=== PATIENT | male | born 1955 | race Hispanic/Latino ===

== ENCOUNTER 2021-04-21 03:12 | Inpatient (IN) | payer SELFPAY ==
[~2021-04-21] VITALS: Ht 182.9 cm; Wt 79.3 kg
[2021-04-21] VITALS (21 sets, daily range): BP systolic 84–222; BP diastolic 38–110
[2021-04-21] MEDS ORDERED: ASPIRIN 325MG TAB ONE (03:25)
[2021-04-21] MEDS ORDERED: HEPARIN 25,000 UNITS/250ML D5W 250 ML IV ONE (03:25)
[2021-04-21] MEDS ORDERED: METOPROLOL TARTRATE 1 MG/ML 5ML VIAL IV ONE ×2 (03:28→04:00)
[2021-04-21] MEDS ORDERED: LORAZEPAM 2 MG/ML 1 ML VIAL ONE (03:28)
[2021-04-21] MEDS ORDERED: ENALAPRILAT DIHYDRATE 1.25MG/ML 1ML VIAL IV ONE (03:33)
[2021-04-21] MEDS ORDERED: NITROGLYCERIN 50MG/D5W 250ML 1 BOT ONE (03:40)
[2021-04-21 03:43] LABS: POTASSIUM 3.6 mmol/L (3.5-5.1)
[2021-04-21 03:44] LABS: BASOPHILS % (AUTO) 0.8 % (0.0-5.0); LYMPHOCYTES % (AUTO) 39.6 % (21.0-51.0); MEAN CORPUSCULAR HEMOGLOBIN 26.9 pg (27.0-33.0); MEAN CORPUSCULAR HGB CONC 32.7 g/dL (32.0-36.0); MEAN CORPUSCULAR VOLUME 82.3 fL (79-99); MONOCYTES % (AUTO) 9.1 % (3.0-13.0); PLATELET COUNT (AUTO) 319 K/uL (130-400); RED CELL DISTRIBUTION WIDTH 14.5 % (11.0-15.5); WHITE BLOOD COUNT (AUTO) 9.6 K/uL (4.8-10.8)
[2021-04-21 03:46] LABS: ALBUMIN 3.6 g/dL (3.5-5.0); BILIRUBIN,TOTAL 0.4 mg/dL (0.2-1.0); TOTAL PROTEIN, SERUM 7.7 g/dL (6.0-8.3)
[2021-04-21] MEDS: HEPARIN 5,000 UNIT VIAL IV SCH ×2 (03:50→21:56)
[2021-04-21] MEDS ORDERED: NITROGLYCERIN 50MG/D5W 250ML 250 BOT IV SCH (04:00)
[2021-04-21] MEDS ORDERED: LORAZEPAM 2 MG/ML 1 ML VIAL IVP ONE (04:00)
[2021-04-21] MEDS: ENALAPRILAT DIHYDRATE 1.25MG/ML 1ML VIAL IV SCH ×2 (04:00→21:56)
[2021-04-21] MEDS ORDERED: HEPARIN 25,000 UNITS/250ML D5W 250 ML IV SCH (04:00)
[2021-04-21] MEDS ORDERED: FUROSEMIDE 40MG VIAL IV SCH (05:30)
[2021-04-21] MEDS ORDERED: ONDANSETRON 4MG INJ IV PRN (05:30)
[2021-04-21 05:48] LABS: HEMOGLOBIN A1C 7.1 % (4.0-6.0)
[2021-04-21 06:20] LABS: INR 0.96 (0.85-1.15); PROTHROMBIN TIME 10.5 SEC (9.6-11.6)
[2021-04-21 06:21] LABS: PARTIAL THROMBOPLASTIN TIME 22.9 SEC (26.3-35.5)
[2021-04-21] MEDS ORDERED: IPRATROPIUM/ALBUTEROL SULFATE 3 ML SOLUTION IH PRN (07:00)
[2021-04-21] MEDS ORDERED: 0.9% NACL 250ML IVPB SCH (09:00)
[2021-04-21] MEDS ORDERED: AZITHROMYCIN 500MG VIAL IVPB SCH (09:00)
[2021-04-21] MEDS ORDERED: LORAZEPAM 2 MG/ML 1 ML VIAL IVP PRN (09:00)
[2021-04-21] MEDS ORDERED: ASPIRIN 325MG TAB PO SCH (09:00)
[2021-04-21] MEDS ORDERED: FAMOTIDINE 20MG VIAL IV SCH (09:00)
[2021-04-21] MEDS ORDERED: PHARMACY COMMUNICATION MISC PRN (09:00)
[2021-04-21] MEDS: MULTIVITAMIN TABLET PO SCH (09:29)
[2021-04-21] MEDS: CEFTRIAXONE 1G VIAL IVP SCH (09:29)
[2021-04-21] MEDS: LISINOPRIL 5 MG TABLET PO SCH (09:29)
[2021-04-21] MEDS: FOLIC ACID 1 MG TABLET PO SCH (09:29)
[2021-04-21] MEDS: THIAMINE HCL 100 MG/ML 2ML VIAL IM SCH (09:29)
[2021-04-21 09:59] LABS: AMPHET/METH SCREEN,URINE NEGATIVE (NEGATIVE); BARBITURATE SCREEN, URINE NEGATIVE (NEGATIVE); BENZODIAZEPINES SCREEN,URINE NEGATIVE (NEGATIVE); CANNABINOID SCREEN,URINE NEGATIVE (NEGATIVE); COCAINE SCREEN,URINE NEGATIVE (NEGATIVE); OPIATE SCREEN,URINE NEGATIVE (NEGATIVE); PHENCYCLIDINE SCREEN,URINE NEGATIVE (NEGATIVE)
[2021-04-21 10:04] LABS: PROTHROMBIN TIME 10.9 SEC (9.6-11.6)
[2021-04-21 10:05] LABS: PARTIAL THROMBOPLASTIN TIME 52.6 SEC (26.3-35.5)
[2021-04-21] MEDS: AZITHROMYCIN 500MG+NS 250ML IV SCH (10:19)
[2021-04-21] MEDS: 0.9% NACL 250ML 250 ML IV SCH (10:19)
[2021-04-21] MEDS: NITROGLYCERIN 1GM OINT 1 INCH/1GM TD SCH ×2 (10:19→21:51)
[2021-04-21] MEDS: INSULIN HUMULIN R 100 UNIT/ML 3ML SQ SCH ×2 (11:30→21:00)
[2021-04-21 15:32] LABS: INR 0.99 (0.85-1.15); PROTHROMBIN TIME 10.8 SEC (9.6-11.6)
[2021-04-21 15:33] LABS: PARTIAL THROMBOPLASTIN TIME 59.5 SEC (26.3-35.5)
[2021-04-21] MEDS ORDERED: ATROPINE 1MG SYG IVP ONE (15:57)
[2021-04-21] MEDS ORDERED: BIVALIRUDIN 250 MG/VIAL IV ONE (15:57)
[2021-04-21] MEDS ORDERED: SODIUM BICARB 50MEQ 50ML VIAL 50 ML ONE (15:57)
[2021-04-21] MEDS ORDERED: IOHEXOL-350 50ML VIAL IV ONE (15:58)
[2021-04-21] MEDS ORDERED: NICARDIPINE 25MG INJ IV ONE (15:58)
[2021-04-21] MEDS ORDERED: HEPARIN 10,000 UNIT/10ML (1,000 UNIT/ML) VIAL ONE (15:58)
[2021-04-21] MEDS ORDERED: NITROGLYCERIN 2 MG VIAL IV ONE (15:58)
[2021-04-21] MEDS ORDERED: DOPAMINE HCL 400 MG/D5%-WATER 0 ML IV ONE (15:59)
[2021-04-21] MEDS ORDERED: IOHEXOL 350 MG/ML 100ML INFUS..BTL IV ONE (15:59)
[2021-04-21] MEDS ORDERED: LIDOCAINE HCL 400MG/20ML VIAL ONE (15:59)
[2021-04-21] MEDS ORDERED: FENTANYL CITRATE PF 50 MCG/1 ML 2ML VIAL ONE (16:43)
[2021-04-21] MEDS ORDERED: MIDAZOLAM HCL 1 MG/ML 2ML VIAL ONE (16:43)
[2021-04-21] MEDS ORDERED: METOPROLOL TARTRATE 25 MG TAB PO ONE (18:00)
[2021-04-21] MEDS ORDERED: PHARMACY COMMUNICATION MISC SCH (20:00)
[2021-04-21] MEDS ORDERED: DEXTROSE 5% IV SCH (20:30)
[2021-04-21] MEDS ORDERED: WATER SQ SCH (20:30)
[2021-04-21] MEDS ORDERED: DEXTROSE 5% SQ SCH (20:30)
[2021-04-21] MEDS ORDERED: HEPARIN SQ SCH (20:30)
[2021-04-21] MEDS ORDERED: HEPARIN IV SCH (20:30)
[2021-04-21] MEDS ORDERED: WATER IV SCH (20:30)
[2021-04-21] MEDS: FUROSEMIDE 100MG VIAL 100 MG in 0.9%NACL 100ML 100 ML IV SCH (21:17)
[2021-04-21] MEDS: ATORVASTATIN 40 MG TABLET PO SCH (21:54)
[2021-04-21] MEDS: FAMOTIDINE 20MG TAB PO SCH (21:55)
[2021-04-21] MEDS: METOPROLOL TARTRATE 25 MG TAB PO SCH (21:56)
[2021-04-21 22:06] LABS: INR 1.03 (0.85-1.15); PROTHROMBIN TIME 11.2 SEC (9.6-11.6)
[2021-04-21 22:22] LABS: PARTIAL THROMBOPLASTIN TIME 129.1 SEC (26.3-35.5)
[2021-04-22] VITALS (34 sets, daily range): BP systolic 97–153; BP diastolic 51–93
[2021-04-22] MEDS ORDERED: ALPRAZOLAM 0.5 MG TABLET ONE (01:14)
[2021-04-22] MEDS: NITROGLYCERIN 1GM OINT 1 INCH/1GM TD SCH ×3 (01:15→17:00)
[2021-04-22] MEDS ORDERED: ZOLPIDEM TARTRATE 5 MG TAB PO PRN (01:30)
[2021-04-22] MEDS ORDERED: ALPRAZOLAM 0.5 MG TABLET PO PRN (01:30)
[2021-04-22 04:06] LABS: ABG BASE EXCESS 1.1 mmol/L (-2.0-3.0); ABG HCO3 24.2 mmol/L (21.0-28.0); ABG PCO2 34 mmHg (35-48)
[2021-04-22] MEDS: FUROSEMIDE 100MG VIAL 100 MG in 0.9%NACL 100ML 100 ML IV SCH (04:27)
[2021-04-22] MEDS ORDERED: MORPHINE 2 MG SYG ONE (04:42)
[2021-04-22] MEDS ORDERED: PHARMACY COMMUNICATION MISC SCH (05:00)
[2021-04-22] MEDS ORDERED: MORPHINE 2 MG SYG IVP PRN ×2 (05:00)
[2021-04-22 05:04] LABS: BASOPHILS % (AUTO) 0.5 % (0.0-5.0); EOSINOPHILS % (AUTO) 1.1 % (0.0-8.0); MEAN CORPUSCULAR HEMOGLOBIN 27.2 pg (27.0-33.0); MEAN CORPUSCULAR HGB CONC 32.9 g/dL (32.0-36.0); MEAN CORPUSCULAR VOLUME 82.7 fL (79-99); MONOCYTES % (AUTO) 7.5 % (3.0-13.0); NEUTROPHILS % (AUTO) 75.4 % (40.0-77.0); PLATELET COUNT (AUTO) 237 K/uL (130-400); RED BLOOD CELL COUNT(AUTO) 5.08 MIL/uL (4.50-6.20); RED CELL DISTRIBUTION WIDTH 14.5 % (11.0-15.5); WHITE BLOOD COUNT (AUTO) 8.9 K/uL (4.8-10.8)
[2021-04-22 05:20] LABS: INR 1.05 (0.85-1.15); PROTHROMBIN TIME 11.4 SEC (9.6-11.6)
[2021-04-22 05:21] LABS: HEMOGLOBIN A1C 7.8 % (4.0-6.0)
[2021-04-22 05:26] LABS: B-TYPE NATRIURETIC PEPTIDE 336 pg/mL (0-100)
[2021-04-22 05:33] LABS: ALBUMIN 1.9 g/dL (3.5-5.0); BILIRUBIN,TOTAL 0.8 mg/dL (0.2-1.0); CREATININE 0.5 mg/dL (0.5-1.5); PHOSPHORUS 2.4 mg/dL (2.5-4.9); TOTAL PROTEIN, SERUM 4.3 g/dL (6.0-8.3)
[2021-04-22 05:45] LABS: POTASSIUM 2.5 mmol/L (3.5-5.1)
[2021-04-22 05:49] LABS: PARTIAL THROMBOPLASTIN TIME 89.7 SEC (26.3-35.5)
[2021-04-22] MEDS ORDERED: KCL 20 MEQ ERTAB PO ONE (06:13)
[2021-04-22] MEDS: INSULIN HUMULIN R 100 UNIT/ML 3ML SQ SCH ×4 (06:24→21:00)
[2021-04-22] MEDS ORDERED: POTASSIUM CHLORIDE 10% ELIXIR 20 MEQ/15 ML UDCUP PO PRN (06:30)
[2021-04-22] MEDS ORDERED: LIDOCAINE HCL-MPF 1% 2ML VIAL IV PRN (06:30)
[2021-04-22] MEDS ORDERED: MAGNESIUM 2GM PREMIX 50ML 50 ML IV PRN (06:30)
[2021-04-22] MEDS ORDERED: POTASSIUM CHLORIDE 20MEQ/100ML 100 ML IV PRN (06:30)
[2021-04-22] MEDS ORDERED: MAGNESIUM 2GM PREMIX 50ML 50 ML IV ONE (06:33)
[2021-04-22] MEDS ORDERED: CALCIUM GLUC 1GM/10ML VIAL IV SCH ×3 (07:30→20:00)
[2021-04-22 07:55] LABS: APPEARANCE,URINE CLOUDY (CLEAR); BILIRUBIN,URINE MODERATE (NEGATIVE); COLOR,URINE BROWN (YELLOW); GLUCOSE, URINE (UA) 100 mg/dL (NEGATIVE); KETONES,URINE 15 mg/dL (NEGATIVE); LEUKOCYTE ESTERASE ,URINE SMALL (NEGATIVE); NITRATE,URINE POSITIVE (NEGATIVE); OCCULT BLOOD,URINE LARGE (NEGATIVE); PROTEIN,URINE >=300 mg/dL (NEGATIVE)
[2021-04-22] MEDS ORDERED: CALCIUM GLUC 1GM 1 GM in 0.9%NACL 50ML 50 ML IV PRN (08:00)
[2021-04-22 08:05] LABS: AMORPHOUS SEDIMENT,UR Moderate /LPF (None Seen); BACTERIA,URINE Few /HPF (None Seen); MUCUS,URINE Few LPF (None Seen); SQUAMOUS EPITHELIAL CELL,UR 0-2 /HPF (0-2); WBC,URINE 0-1 /HPF (0-1)
[2021-04-22] MEDS: KCL 20 MEQ ERTAB PO PRN ×3 (08:30→23:59)
[2021-04-22] MEDS: CEFTRIAXONE 1G VIAL IVP SCH (08:33)
[2021-04-22] MEDS: THIAMINE HCL 100 MG/ML 2ML VIAL IM SCH (08:33)
[2021-04-22] MEDS: FOLIC ACID 1 MG TABLET PO SCH (08:33)
[2021-04-22] MEDS: ASPIRIN 81 MG EC TAB PO SCH (08:33)
[2021-04-22] MEDS: MULTIVITAMIN TABLET PO SCH (08:33)
[2021-04-22] MEDS: FAMOTIDINE 20MG TAB PO SCH ×2 (08:34→20:51)
[2021-04-22] MEDS: 0.9% NACL 250ML 250 ML IV SCH (08:34)
[2021-04-22] MEDS: AZITHROMYCIN 500MG+NS 250ML IV SCH (08:34)
[2021-04-22] MEDS: LISINOPRIL 5 MG TABLET PO SCH (08:34)
[2021-04-22] MEDS: METOPROLOL TARTRATE 25 MG TAB PO SCH (08:34)
[2021-04-22] MEDS ORDERED: NOREPINEPHRINE 4MG/NS 250ML 250 ML IV ONE (08:40)
[2021-04-22 10:11] LABS: CREATININE 0.8 mg/dL (0.5-1.5); POTASSIUM 4.2 mmol/L (3.5-5.1)
[2021-04-22 10:37] LABS: PROTHROMBIN TIME 10.9 SEC (9.6-11.6)
[2021-04-22 10:38] LABS: PARTIAL THROMBOPLASTIN TIME 71.1 SEC (26.3-35.5)
[2021-04-22] MEDS ORDERED: FENTANYL CITRATE PF 0.05 MG/ML 1,000 MCG in 0.9%NACL 100ML 100 ML IVPB SCH (14:30)
[2021-04-22] MEDS ORDERED: PHENYLEPHRINE HCL 100 MG in 0.9% NACL 250ML 250 ML IV SCH (14:30)
[2021-04-22] MEDS ORDERED: MIDAZOLAM 100MG-0.9% NS 100ML 100ML BAG IV PRN (14:30)
[2021-04-22] MEDS ORDERED: FENTANYL 2500MCG+NS 250ML 250 ML IV SCH (14:30)
[2021-04-22] MEDS ORDERED: MIDAZOLAM 100MG-0.9% NS 100ML 100 ML IV SCH (15:00)
[2021-04-22] MEDS ORDERED: 0.9% NACL 500ML IV.SOLN 500 ML IV ONE (15:04)
[2021-04-22 15:24] LABS: INR 0.98 (0.85-1.15); PROTHROMBIN TIME 10.7 SEC (9.6-11.6)
[2021-04-22 15:25] LABS: PARTIAL THROMBOPLASTIN TIME 46.1 SEC (26.3-35.5)
[2021-04-22] MEDS ORDERED: HEPARIN 25,000 UNITS/250ML D5W 250 ML IV ONE (16:04)
[2021-04-22] MEDS: ATORVASTATIN 40 MG TABLET PO SCH (20:51)
[2021-04-22 21:53] LABS: CREATININE 0.9 mg/dL (0.5-1.5); POTASSIUM 3.7 mmol/L (3.5-5.1)
[2021-04-22 21:57] LABS: PROTHROMBIN TIME 10.9 SEC (9.6-11.6)
[2021-04-22 21:58] LABS: PARTIAL THROMBOPLASTIN TIME 40.5 SEC (26.3-35.5)
[2021-04-22] MEDS ORDERED: CEFAZOLIN SODIUM 1 GM VIAL IVP PRN (22:00)
[2021-04-23] VITALS (56 sets, daily range): BP systolic 77–173; BP diastolic 24–77
[2021-04-23] MEDS: NITROGLYCERIN 1GM OINT 1 INCH/1GM TD SCH ×2 (00:48→09:00)
[2021-04-23 03:41] LABS: HEMATOCRIT 43.1 % (42-54); MEAN CORPUSCULAR HEMOGLOBIN 26.7 pg (27.0-33.0); MEAN CORPUSCULAR HGB CONC 32.9 g/dL (32.0-36.0); MEAN CORPUSCULAR VOLUME 81.2 fL (79-99); RED BLOOD CELL COUNT(AUTO) 5.31 MIL/uL (4.50-6.20); RED CELL DISTRIBUTION WIDTH 14.5 % (11.0-15.5); WHITE BLOOD COUNT (AUTO) 8.2 K/uL (4.8-10.8)
[2021-04-23 03:54] LABS: ALBUMIN 3.2 g/dL (3.5-5.0); BILIRUBIN,TOTAL 0.9 mg/dL (0.2-1.0); CREATININE 0.7 mg/dL (0.5-1.5); POTASSIUM 4.2 mmol/L (3.5-5.1); TOTAL PROTEIN, SERUM 6.8 g/dL (6.0-8.3)
[2021-04-23] MEDS ORDERED: PHARMACY COMMUNICATION MISC SCH ×3 (04:00→20:30)
[2021-04-23 04:05] LABS: PROTHROMBIN TIME 10.9 SEC (9.6-11.6)
[2021-04-23 04:06] LABS: PARTIAL THROMBOPLASTIN TIME 47.3 SEC (26.3-35.5)
[2021-04-23] MEDS: INSULIN HUMULIN R 100 UNIT/ML 3ML SQ SCH ×2 (06:55→11:30)
[2021-04-23] MEDS ORDERED: DEXTROSE 5%-WATER 500 ML IV ONE (07:00)
[2021-04-23] MEDS ORDERED: NOREPINEPHRINE BITARTRATE 8 MG in 0.9% NACL 250ML 250 ML IV PRN (07:00)
[2021-04-23] MEDS ORDERED: AMINOCAPROIC ACID 5,000MG VIAL 15,000 MG in 0.9% NACL 500ML IV.SOLN 420 ML IV PRN (07:00)
[2021-04-23] MEDS ORDERED: FUROSEMIDE 40MG VIAL ONE (08:15)
[2021-04-23] MEDS: CEFTRIAXONE 1G VIAL IVP SCH (08:25)
[2021-04-23] MEDS: AZITHROMYCIN 500MG+NS 250ML IV SCH (08:26)
[2021-04-23] MEDS: 0.9% NACL 250ML 250 ML IV SCH (08:26)
[2021-04-23] MEDS ORDERED: FAMOTIDINE 20MG VIAL IV ONE (08:33)
[2021-04-23] MEDS: KCL 20 MEQ ERTAB PO PRN (08:54)
[2021-04-23] MEDS: ASPIRIN 81 MG EC TAB PO SCH (09:00)
[2021-04-23] MEDS: MULTIVITAMIN TABLET PO SCH (09:00)
[2021-04-23] MEDS: THIAMINE HCL 100 MG/ML 2ML VIAL IM SCH (09:00)
[2021-04-23] MEDS: FAMOTIDINE 20MG TAB PO SCH (09:00)
[2021-04-23] MEDS: FOLIC ACID 1 MG TABLET PO SCH (09:00)
[2021-04-23] MEDS ORDERED: NITROGLYCERIN 50MG/D5W 250ML 1 BOT ONE (09:20)
[2021-04-23] MEDS ORDERED: INSLAN SQ (09:47)
[2021-04-23] MEDS ORDERED: SITA100T12 PO (09:47)
[2021-04-23] MEDS ORDERED: ATOR10 PO (09:47)
[2021-04-23] MEDS ORDERED: MELO10CA3 PO (09:47)
[2021-04-23] MEDS ORDERED: CEFAZOLIN SODIUM 1 GM VIAL ONE ×3 (10:04→11:58)
[2021-04-23] MEDS ORDERED: ROCURONIUM 10MG/1ML SYR 10 MG/ML ML ONE ×3 (10:14→10:36)
[2021-04-23] MEDS ORDERED: MIDAZOLAM HCL 1 MG/ML 2ML VIAL ONE (10:36)
[2021-04-23] MEDS ORDERED: FENTANYL CITRATE PF 50 MCG/1 ML 20ML VIAL IJ ONE (10:36)
[2021-04-23] MEDS ORDERED: PROPOFOL 10 MG/ML 20ML VIAL IV ONE (10:36)
[2021-04-23] MEDS ORDERED: ESMOLOL HCL 10 MG/ML 10 ML VIAL ONE (10:36)
[2021-04-23] MEDS ORDERED: NOREPINEPHRINE BITARTRATE 1 MG/1 ML ML IV ONE (10:36)
[2021-04-23] MEDS ORDERED: PROTAMINE SULFATE 10 MG/ML 25ML VIAL IV ONE ×2 (10:36→14:19)
[2021-04-23] MEDS ORDERED: AMINOCAPROIC ACID 5,000MG VIAL ONE (10:36)
[2021-04-23] MEDS ORDERED: HEPARIN 10,000 UNIT/10ML (1,000 UNIT/ML) VIAL ONE ×2 (10:36→11:41)
[2021-04-23] MEDS ORDERED: EPINEPHRINE PF 1MG AMP ONE (10:36)
[2021-04-23] MEDS ORDERED: LIDOCAINE PF 100MG/5ML (2%) SYRINGE 5ML ONE ×3 (10:36→15:03)
[2021-04-23] MEDS ORDERED: SODIUM BICARB 50MEQ 50ML VIAL 150 ML ONE (10:36)
[2021-04-23] MEDS ORDERED: ETOMIDATE 20MG VIAL ONE (10:37)
[2021-04-23] MEDS ORDERED: AMIODARONE 150MG VIAL ONE ×2 (11:18→13:04)
[2021-04-23] MEDS ORDERED: SUCCINYLCHOLINE CHLORIDE 20 MG/ML 10 ML VIAL ONE (11:25)
[2021-04-23 11:57] LABS: ABG BASE EXCESS 0.5 mmol/L (-2.0-3.0); ABG HCO3 25.5 mmol/L (21.0-28.0); ABG OXYGEN SATURATION 99.4 % (95.0-99.0); ABG PCO2 42 mmHg (35-48)
[2021-04-23] MEDS ORDERED: AMIODARONE 900MG VIAL 900 MG in DEXTROSE 5%-WATER 500 ML IV PRN ×2 (12:30→15:00)
[2021-04-23] MEDS ORDERED: AMIODARONE 900MG VIAL 900 MG in DEXTROSE 5%-WATER 200 ML IV PRN (12:30)
[2021-04-23 12:56] LABS: ABG BASE EXCESS -2.8 mmol/L (-2.0-3.0); ABG HCO3 21.9 mmol/L (21.0-28.0); ABG OXYGEN SATURATION 99.5 % (95.0-99.0); ABG PCO2 38 mmHg (35-48)
[2021-04-23] MEDS ORDERED: NITROGLYCERIN 50MG/D5W 250ML 250 BOT IV SCH (13:30)
[2021-04-23] MEDS ORDERED: POTASSIUM PHOS 15 mMOL+NS250ML 250 ML IV PRN (13:30)
[2021-04-23] MEDS ORDERED: DEXTROSE 50%-WATER 50 ML DISP.SYRIN IV PRN (13:30)
[2021-04-23] MEDS ORDERED: ALBUMIN (HUMAN) 5% 250 ML IV PRN (13:30)
[2021-04-23] MEDS ORDERED: 0.9% NACL 500ML IV.SOLN 500 ML IV SCH (13:30)
[2021-04-23] MEDS ORDERED: MORPHINE 2 MG SYG IV PRN ×2 (13:30→15:00)
[2021-04-23] MEDS ORDERED: PROPOFOL 1000 MG/100 ML 100 ML IV PRN (13:30)
[2021-04-23] MEDS ORDERED: GLUCAGON 1MG KIT 1 MG ML IM PRN (13:30)
[2021-04-23] MEDS ORDERED: 0.9%NACL 10ML VIAL IVP PRN (13:30)
[2021-04-23] MEDS ORDERED: EPINEPHRINE PF 1MG AMP 2 MG in DEXTROSE 5%-WATER 250 ML IV PRN (13:30)
[2021-04-23] MEDS ORDERED: NOREPINEPHRINE 4MG/NS 250ML 250 ML IV PRN (13:30)
[2021-04-23] MEDS ORDERED: SODIUM BICARB 50MEQ 50ML VIAL IV PRN (13:30)
[2021-04-23] MEDS ORDERED: AMINOCAPROIC ACID 5,000MG VIAL 15,000 MG in 0.9% NACL 250ML 250 ML IV SCH (13:30)
[2021-04-23] MEDS ORDERED: ACETAMINOPHEN 650 MG SUPPOSITORY RC PRN (13:30)
[2021-04-23] MEDS ORDERED: 0.9%NACL 1000ML 1,000 ML IV SCH (13:30)
[2021-04-23 13:53] LABS: ABG BASE EXCESS -0.6 mmol/L (-2.0-3.0); ABG HCO3 24.6 mmol/L (21.0-28.0); ABG OXYGEN SATURATION 99.5 % (95.0-99.0); ABG PCO2 43 mmHg (35-48)
[2021-04-23] MEDS ORDERED: INSULIN HUMULIN R 100 UNIT/ML 3ML ONE (14:06)
[2021-04-23 14:39] LABS: ABG BASE EXCESS -3.9 mmol/L (-2.0-3.0); ABG HCO3 21.5 mmol/L (21.0-28.0); ABG OXYGEN SATURATION 99.3 % (95.0-99.0); ABG PCO2 40 mmHg (35-48)
[2021-04-23] MEDS ORDERED: ALBUMIN (HUMAN) 5% 500 ML IV ONE (14:51)
[2021-04-23] MEDS ORDERED: WATER IJ SCH (15:30)
[2021-04-23] MEDS ORDERED: FUROSEMIDE 100MG VIAL 100 MG in 0.9%NACL 100ML 100 ML IV SCH (15:30)
[2021-04-23] MEDS ORDERED: DEXTROSE 10% IJ SCH (15:30)
[2021-04-23] MEDS ORDERED: HEPARIN IJ SCH (15:30)
[2021-04-23 15:37] LABS: ABG BASE EXCESS -1.7 mmol/L (-2.0-3.0); ABG HCO3 24.1 mmol/L (21.0-28.0); ABG OXYGEN SATURATION 98.7 % (95.0-99.0); ABG PCO2 45 mmHg (35-48)
[2021-04-23 15:39] LABS: HEMATOCRIT 37.4 % (42-54); MEAN CORPUSCULAR HEMOGLOBIN 26.9 pg (27.0-33.0); MEAN CORPUSCULAR HGB CONC 32.9 g/dL (32.0-36.0); MEAN CORPUSCULAR VOLUME 81.7 fL (79-99); RED BLOOD CELL COUNT(AUTO) 4.58 MIL/uL (4.50-6.20); RED CELL DISTRIBUTION WIDTH 14.4 % (11.0-15.5)
[2021-04-23] MEDS: POTASSIUM CHLORIDE 20MEQ/100ML 100 ML IV PRN ×4 (15:40→22:37)
[2021-04-23] MEDS: CALCIUM GLUC 1GM 1 GM in 0.9%NACL 50ML 50 ML IV PRN ×3 (15:40→22:38)
[2021-04-23] MEDS: MAGNESIUM 2GM PREMIX 50ML 50 ML IV PRN ×2 (15:40→17:35)
[2021-04-23 15:51] LABS: INR 1.11 (0.85-1.15)
[2021-04-23 15:52] LABS: PARTIAL THROMBOPLASTIN TIME 20.8 SEC (26.3-35.5)
[2021-04-23 16:06] LABS: CREATININE 1.2 mg/dL (0.5-1.5); POTASSIUM 3.5 mmol/L (3.5-5.1)
[2021-04-23 16:10] LABS: ALBUMIN 2.7 g/dL (3.5-5.0); BILIRUBIN,TOTAL 0.9 mg/dL (0.2-1.0); MAGNESIUM 1.5 mg/dL (1.80-2.40); PHOSPHORUS 3.7 mg/dL (2.5-4.9); TOTAL PROTEIN, SERUM 5.6 g/dL (6.0-8.3)
[2021-04-23 16:41] LABS: ABG BASE EXCESS -2.6 mmol/L (-2.0-3.0); ABG HCO3 22.1 mmol/L (21.0-28.0); ABG OXYGEN SATURATION 97.8 % (95.0-99.0); ABG PCO2 38 mmHg (35-48)
[2021-04-23 18:27] LABS: ABG BASE EXCESS 1.6 mmol/L (-2.0-3.0); ABG HCO3 25.5 mmol/L (21.0-28.0); ABG OXYGEN SATURATION 96.7 % (95.0-99.0); ABG PCO2 38 mmHg (35-48)
[2021-04-23] MEDS: CEFAZOLIN SODIUM 1 GM VIAL IV SCH (18:46)
[2021-04-23] MEDS ORDERED: NOREPINEPHRINE 8MG/NS 250 ML 250 ML IV SCH (20:30)
[2021-04-23] MEDS: FAMOTIDINE 20MG VIAL IV SCH (21:13)
[2021-04-23 22:34] LABS: ABG BASE EXCESS 2.8 mmol/L (-2.0-3.0); ABG HCO3 26.7 mmol/L (21.0-28.0); ABG OXYGEN SATURATION 95.1 % (95.0-99.0); ABG PCO2 39 mmHg (35-48)
[2021-04-24] VITALS (82 sets, daily range): BP systolic 104–213; BP diastolic 36–206
[2021-04-24] MEDS: MAGNESIUM 2GM PREMIX 50ML 50 ML IV PRN ×3 (00:16→22:39)
[2021-04-24 00:40] LABS: ABG BASE EXCESS 2.7 mmol/L (-2.0-3.0); ABG HCO3 27.5 mmol/L (21.0-28.0); ABG OXYGEN SATURATION 98.1 % (95.0-99.0); ABG PCO2 43 mmHg (35-48)
[2021-04-24 02:08] LABS: ABG BASE EXCESS 1.8 mmol/L (-2.0-3.0); ABG HCO3 26.1 mmol/L (21.0-28.0); ABG OXYGEN SATURATION 96.2 % (95.0-99.0); ABG PCO2 40 mmHg (35-48)
[2021-04-24] MEDS: TRAMADOL HCL 50 MG TABLET PO PRN ×3 (02:24→20:10)
[2021-04-24] MEDS: CEFAZOLIN SODIUM 1 GM VIAL IV SCH ×2 (02:24→09:45)
[2021-04-24] MEDS: POTASSIUM CHLORIDE 20MEQ/100ML 100 ML IV PRN ×3 (02:25→22:41)
[2021-04-24 03:58] LABS: ABG BASE EXCESS 1.4 mmol/L (-2.0-3.0); ABG HCO3 25.5 mmol/L (21.0-28.0); ABG PCO2 38 mmHg (35-48)
[2021-04-24] MEDS: INSULIN REGULAR, HUMAN 3ML 100 UNIT in 0.9%NACL 100ML 99 ML IV SCH ×4 (04:01→20:11)
[2021-04-24] MEDS: ACETAMINOPHEN 325 MG TAB PO PRN ×2 (04:42→20:09)
[2021-04-24 05:43] LABS: HEMATOCRIT 38.5 % (42-54); MEAN CORPUSCULAR HEMOGLOBIN 26.7 pg (27.0-33.0); MEAN CORPUSCULAR HGB CONC 31.9 g/dL (32.0-36.0); MEAN CORPUSCULAR VOLUME 83.5 fL (79-99); RED BLOOD CELL COUNT(AUTO) 4.61 MIL/uL (4.50-6.20); RED CELL DISTRIBUTION WIDTH 14.8 % (11.0-15.5); WHITE BLOOD COUNT (AUTO) 13.2 K/uL (4.8-10.8)
[2021-04-24 05:56] LABS: ALBUMIN 2.7 g/dL (3.5-5.0); BILIRUBIN,TOTAL 0.8 mg/dL (0.2-1.0); CREATININE 0.9 mg/dL (0.5-1.5); PHOSPHORUS 3.8 mg/dL (2.5-4.9); POTASSIUM 4.2 mmol/L (3.5-5.1); TOTAL PROTEIN, SERUM 5.9 g/dL (6.0-8.3)
[2021-04-24 07:22] LABS: ABG BASE EXCESS 1.3 mmol/L (-2.0-3.0); ABG HCO3 25.5 mmol/L (21.0-28.0); ABG OXYGEN SATURATION 96.9 % (95.0-99.0); ABG PCO2 39 mmHg (35-48)
[2021-04-24] MEDS: CEFTRIAXONE 1G VIAL IVP SCH (09:45)
[2021-04-24] MEDS: 0.9% NACL 250ML 250 ML IV SCH (09:45)
[2021-04-24] MEDS: FAMOTIDINE 20MG VIAL IV SCH ×2 (09:45→20:08)
[2021-04-24] MEDS: AZITHROMYCIN 500MG+NS 250ML IV SCH (09:45)
[2021-04-24] MEDS: FUROSEMIDE 20MG VIAL IV SCH ×2 (09:45→20:13)
[2021-04-24] MEDS: CALCIUM GLUC 1GM 1 GM in 0.9%NACL 50ML 50 ML IV PRN ×3 (10:20→22:39)
[2021-04-24 12:08] LABS: CREATININE 0.9 mg/dL (0.5-1.5); POTASSIUM 3.6 mmol/L (3.5-5.1)
[2021-04-24 16:04] LABS: ABG BASE EXCESS 2.7 mmol/L (-2.0-3.0); ABG OXYGEN SATURATION 97.1 % (95.0-99.0); ABG PCO2 46 mmHg (35-48)
[2021-04-24] MEDS: ASPIRIN 81MG CHEW TAB PO SCH (16:07)
[2021-04-24 19:46] LABS: ABG BASE EXCESS 0.3 mmol/L (-2.0-3.0); ABG HCO3 24.2 mmol/L (21.0-28.0); ABG PCO2 37 mmHg (35-48)
[2021-04-24] MEDS: ATORVASTATIN 40 MG TABLET PO SCH (20:08)
[2021-04-24 22:05] LABS: MAGNESIUM 1.8 mg/dL (1.80-2.40)
[2021-04-24 23:51] LABS: ABG BASE EXCESS 1.9 mmol/L (-2.0-3.0); ABG HCO3 25.8 mmol/L (21.0-28.0); ABG OXYGEN SATURATION 97.2 % (95.0-99.0); ABG PCO2 38 mmHg (35-48)
[2021-04-25] VITALS (43 sets, daily range): BP systolic 91–172; BP diastolic 34–63
[2021-04-25 03:54] LABS: ABG BASE EXCESS 4.4 mmol/L (-2.0-3.0); ABG HCO3 28.4 mmol/L (21.0-28.0); ABG OXYGEN SATURATION 97.4 % (95.0-99.0); ABG PCO2 40 mmHg (35-48)
[2021-04-25] MEDS: CALCIUM GLUC 1GM 1 GM in 0.9%NACL 50ML 50 ML IV PRN (04:02)
[2021-04-25 04:06] LABS: HEMATOCRIT 32.8 % (42-54); MEAN CORPUSCULAR HEMOGLOBIN 26.9 pg (27.0-33.0); MEAN CORPUSCULAR HGB CONC 32.9 g/dL (32.0-36.0); MEAN CORPUSCULAR VOLUME 81.8 fL (79-99); RED BLOOD CELL COUNT(AUTO) 4.01 MIL/uL (4.50-6.20); RED CELL DISTRIBUTION WIDTH 14.6 % (11.0-15.5); WHITE BLOOD COUNT (AUTO) 13.8 K/uL (4.8-10.8)
[2021-04-25 04:18] LABS: INR 1.15 (0.85-1.15); PROTHROMBIN TIME 12.4 SEC (9.6-11.6)
[2021-04-25 04:19] LABS: ALBUMIN 2.4 g/dL (3.5-5.0); BILIRUBIN,TOTAL 0.7 mg/dL (0.2-1.0); CREATININE 0.8 mg/dL (0.5-1.5); MAGNESIUM 2.1 mg/dL (1.80-2.40); POTASSIUM 3.9 mmol/L (3.5-5.1); TOTAL PROTEIN, SERUM 6.1 g/dL (6.0-8.3)
[2021-04-25 04:20] LABS: PARTIAL THROMBOPLASTIN TIME 32.5 SEC (26.3-35.5)
[2021-04-25] MEDS: POTASSIUM CHLORIDE 20MEQ/100ML 100 ML IV PRN (04:56)
[2021-04-25] MEDS ORDERED: AMIODARONE 900MG VIAL 150 MG in DEXTROSE 5%-WATER 100 ML IV SCH (06:43)
[2021-04-25] MEDS: ACETAMINOPHEN 325 MG TAB PO PRN (07:38)
[2021-04-25] MEDS: TRAMADOL HCL 50 MG TABLET PO PRN ×2 (07:42→21:04)
[2021-04-25] MEDS: CEFTRIAXONE 1G VIAL IVP SCH (07:58)
[2021-04-25] MEDS: FAMOTIDINE 20MG VIAL IV SCH ×2 (07:58→21:04)
[2021-04-25] MEDS: ASPIRIN 81MG CHEW TAB PO SCH (07:59)
[2021-04-25] MEDS: AZITHROMYCIN 500MG+NS 250ML IV SCH (08:54)
[2021-04-25] MEDS: FUROSEMIDE 20MG VIAL IV SCH ×2 (08:54→21:04)
[2021-04-25] MEDS: 0.9% NACL 250ML 250 ML IV SCH (08:58)
[2021-04-25] MEDS ORDERED: POLYETHYLENE GLYCOL 3350 17 GM POWD.PACK PO SCH (12:00)
[2021-04-25] MEDS: INSULIN HUMULIN R 100 UNIT/ML 3ML SQ SCH (16:24)
[2021-04-25] MEDS: ATORVASTATIN 40 MG TABLET PO SCH (21:04)
[2021-04-25] MEDS: EPINEPHRINE PF 1MG AMP 10 MG in 0.9% NACL 250ML 240 ML IV PRN (21:57)
[2021-04-26] VITALS (25 sets, daily range): BP systolic 130–255; BP diastolic 62–108
[2021-04-26] MEDS: INSULIN HUMULIN R 100 UNIT/ML 3ML SQ SCH ×4 (00:19→16:30)
[2021-04-26 04:59] LABS: HEMATOCRIT 32.6 % (42-54); MEAN CORPUSCULAR HGB CONC 32.8 g/dL (32.0-36.0); MEAN CORPUSCULAR VOLUME 82.3 fL (79-99); RED BLOOD CELL COUNT(AUTO) 3.96 MIL/uL (4.50-6.20); RED CELL DISTRIBUTION WIDTH 14.6 % (11.0-15.5); WHITE BLOOD COUNT (AUTO) 11.7 K/uL (4.8-10.8)
[2021-04-26 05:10] LABS: INR 1.05 (0.85-1.15); PROTHROMBIN TIME 11.4 SEC (9.6-11.6)
[2021-04-26 05:12] LABS: ALBUMIN 2.2 g/dL (3.5-5.0); BILIRUBIN,TOTAL 0.5 mg/dL (0.2-1.0); CREATININE 0.7 mg/dL (0.5-1.5); MAGNESIUM 1.9 mg/dL (1.80-2.40); PARTIAL THROMBOPLASTIN TIME 31.9 SEC (26.3-35.5); POTASSIUM 3.8 mmol/L (3.5-5.1); TOTAL PROTEIN, SERUM 6.1 g/dL (6.0-8.3)
[2021-04-26] MEDS: MAGNESIUM 2GM PREMIX 50ML 50 ML IV PRN (05:21)
[2021-04-26] MEDS: POTASSIUM CHLORIDE 20MEQ/100ML 100 ML IV PRN ×2 (05:22→21:57)
[2021-04-26] MEDS ORDERED: MIDAZOLAM HCL 1 MG/ML 2ML VIAL ONE (06:56)
[2021-04-26] MEDS ORDERED: ONDANSETRON 4MG INJ ONE (06:56)
[2021-04-26] MEDS ORDERED: LIDOCAINE PF 100MG/5ML (2%) SYRINGE 5ML ONE (06:56)
[2021-04-26] MEDS ORDERED: PROPOFOL 10 MG/ML 20ML VIAL IV ONE (06:56)
[2021-04-26] MEDS ORDERED: FENTANYL CITRATE PF 50 MCG/1 ML 2ML VIAL ONE (06:56)
[2021-04-26] MEDS ORDERED: DEXAMETHASONE SOD PHOSPHATE 10MG/ML 1ML VIAL ONE (06:56)
[2021-04-26] MEDS: CEFTRIAXONE 1G VIAL IVP SCH ×2 (07:40→09:00)
[2021-04-26] MEDS ORDERED: VASOPRESSIN 20 UNITS/ML 1ML VIAL ONE (07:53)
[2021-04-26] MEDS ORDERED: ROCURONIUM 10MG/1ML SYR 10 MG/ML ML ONE (08:07)
[2021-04-26 08:10] LABS: ABG BASE EXCESS -3.4 mmol/L (-2.0-3.0); ABG OXYGEN SATURATION 99.3 % (95.0-99.0); ABG PCO2 41 mmHg (35-48)
[2021-04-26] MEDS ORDERED: SODIUM BICARB 8.4% 50ML SYRINGE ONE (08:15)
[2021-04-26] MEDS ORDERED: PHENYLEPHRINE HCL 10 MG/ML 1ML VIAL IV ONE (08:19)
[2021-04-26] MEDS ORDERED: EPINEPHRINE 1MG SYG 10ML ONE (08:19)
[2021-04-26] MEDS: ASPIRIN 81MG CHEW TAB PO SCH (09:00)
[2021-04-26] MEDS: SENNOSIDES 8.6 MG TABLET PO SCH (09:00)
[2021-04-26] MEDS: DOCUSATE SODIUM 100 MG CAP PO SCH (09:00)
[2021-04-26] MEDS ORDERED: FENTANYL 2500MCG+NS 250ML 250 ML IV ONE (09:28)
[2021-04-26] MEDS: AZITHROMYCIN 500MG+NS 250ML IV SCH (09:30)
[2021-04-26] MEDS: 0.9% NACL 250ML 250 ML IV SCH (09:30)
[2021-04-26] MEDS ORDERED: MIDAZOLAM 50MG-0.9% NS 50ML 50 ML BAG IV SCH (10:00)
[2021-04-26] MEDS ORDERED: FENTANYL CITRATE PF 0.05 MG/ML 1,000 MCG in 0.9%NACL 100ML 100 ML IVPB SCH (10:00)
[2021-04-26] MEDS ORDERED: FENTANYL 2500MCG+NS 250ML 250 ML IV SCH (10:00)
[2021-04-26 10:35] LABS: ABG BASE EXCESS 2.2 mmol/L (-2.0-3.0); ABG HCO3 26.7 mmol/L (21.0-28.0); ABG OXYGEN SATURATION 98.2 % (95.0-99.0); ABG PCO2 41 mmHg (35-48)
[2021-04-26 10:37] LABS: ABG OXYGEN SATURATION 82.7 % (95.0-99.0); BASE EXCESS,VENOUS BLOOD GAS 0.7 (-2.0-3.0); HCO3,VENOUS BLOOD GAS 25.1 (21.0-28.0); PCO2,VENOUS BLOOD GAS 40 (35-48); PH,VENOUS BLOOD GAS 7.418 (7.350-7.450)
[2021-04-26] MEDS: MIDAZOLAM 100MG-0.9% NS 100ML 100 ML IV SCH ×2 (10:41→17:45)
[2021-04-26] MEDS: FUROSEMIDE 20MG VIAL IV SCH ×2 (11:34→21:57)
[2021-04-26] MEDS: FAMOTIDINE 20MG VIAL IV SCH ×2 (11:34→21:36)
[2021-04-26 16:35] LABS: ABG BASE EXCESS 4.9 mmol/L (-2.0-3.0); ABG HCO3 28.9 mmol/L (21.0-28.0); ABG OXYGEN SATURATION 97.8 % (95.0-99.0); ABG PCO2 41 mmHg (35-48)
[2021-04-26 18:44] LABS: ABG BASE EXCESS 5.2 mmol/L (-2.0-3.0); ABG HCO3 29.6 mmol/L (21.0-28.0); ABG OXYGEN SATURATION 97.4 % (95.0-99.0); ABG PCO2 43 mmHg (35-48)
[2021-04-26] MEDS: ATORVASTATIN 40 MG TABLET PO SCH (21:00)
[2021-04-26 21:19] LABS: ABG BASE EXCESS 4.4 mmol/L (-2.0-3.0); ABG HCO3 28.9 mmol/L (21.0-28.0); ABG OXYGEN SATURATION 97.9 % (95.0-99.0); ABG PCO2 43 mmHg (35-48)
[2021-04-27] VITALS (24 sets, daily range): BP systolic 123–150; BP diastolic 56–70
[2021-04-27] MEDS: INSULIN HUMULIN R 100 UNIT/ML 3ML SQ SCH ×4 (00:45→18:20)
[2021-04-27 01:14] LABS: ABG BASE EXCESS 3.3 mmol/L (-2.0-3.0); ABG HCO3 27.2 mmol/L (21.0-28.0); ABG PCO2 39 mmHg (35-48)
[2021-04-27] MEDS: POTASSIUM CHLORIDE 20MEQ/100ML 100 ML IV PRN ×3 (01:21→22:41)
[2021-04-27 04:38] LABS: ABG BASE EXCESS 4.4 mmol/L (-2.0-3.0); ABG HCO3 28.9 mmol/L (21.0-28.0); ABG PCO2 43 mmHg (35-48)
[2021-04-27 04:48] LABS: HEMATOCRIT 32.3 % (42-54); MEAN CORPUSCULAR HEMOGLOBIN 26.5 pg (27.0-33.0); MEAN CORPUSCULAR HGB CONC 31.6 g/dL (32.0-36.0); MEAN CORPUSCULAR VOLUME 83.9 fL (79-99); RED BLOOD CELL COUNT(AUTO) 3.85 MIL/uL (4.50-6.20); RED CELL DISTRIBUTION WIDTH 14.6 % (11.0-15.5); WHITE BLOOD COUNT (AUTO) 9.9 K/uL (4.8-10.8)
[2021-04-27 05:05] LABS: INR 1.08 (0.85-1.15); PROTHROMBIN TIME 11.7 SEC (9.6-11.6)
[2021-04-27 05:07] LABS: PARTIAL THROMBOPLASTIN TIME 27.4 SEC (26.3-35.5)
[2021-04-27 05:20] LABS: BILIRUBIN,TOTAL 0.7 mg/dL (0.2-1.0); CREATININE 0.8 mg/dL (0.5-1.5); POTASSIUM 4.1 mmol/L (3.5-5.1); TOTAL PROTEIN, SERUM 5.7 g/dL (6.0-8.3)
[2021-04-27] MEDS: AMIODARONE 900MG VIAL 450 MG in DEXTROSE 5%-WATER 250 ML IV SCH ×2 (06:13→19:25)
[2021-04-27] MEDS: MIDAZOLAM 100MG-0.9% NS 100ML 100 ML IV SCH (08:02)
[2021-04-27] MEDS: EPINEPHRINE PF 1MG AMP 10 MG in 0.9% NACL 250ML 240 ML IV PRN (08:03)
[2021-04-27] MEDS: AZITHROMYCIN 500MG+NS 250ML IV SCH (08:57)
[2021-04-27] MEDS: FAMOTIDINE 20MG VIAL IV SCH ×2 (08:57→21:12)
[2021-04-27] MEDS: 0.9% NACL 250ML 250 ML IV SCH (08:57)
[2021-04-27] MEDS: FUROSEMIDE 20MG VIAL IV SCH ×2 (08:58→21:13)
[2021-04-27] MEDS: CEFTRIAXONE 1G VIAL IVP SCH (08:58)
[2021-04-27] MEDS: DOCUSATE SODIUM 100 MG CAP PO SCH (09:00)
[2021-04-27] MEDS: SENNOSIDES 8.6 MG TABLET PO SCH (09:00)
[2021-04-27] MEDS: ASPIRIN 81MG CHEW TAB PO SCH ×2 (09:00→13:55)
[2021-04-27] MEDS: HEPARIN IJ SCH (09:34)
[2021-04-27] MEDS: WATER IJ SCH (09:34)
[2021-04-27] MEDS: DEXTROSE 5% IJ SCH (09:34)
[2021-04-27 10:13] LABS: ABG BASE EXCESS 5.1 mmol/L (-2.0-3.0); ABG HCO3 29.4 mmol/L (21.0-28.0); ABG OXYGEN SATURATION 97.8 % (95.0-99.0); ABG PCO2 42 mmHg (35-48)
[2021-04-27 11:23] LABS: MAGNESIUM 1.9 mg/dL (1.80-2.40); POTASSIUM 3.9 mmol/L (3.5-5.1)
[2021-04-27] MEDS: MAGNESIUM 2GM PREMIX 50ML 50 ML IV PRN (11:52)
[2021-04-27 14:27] LABS: ABG BASE EXCESS 2.6 mmol/L (-2.0-3.0); ABG HCO3 26.4 mmol/L (21.0-28.0); ABG OXYGEN SATURATION 98.6 % (95.0-99.0); ABG PCO2 38 mmHg (35-48)
[2021-04-27 18:43] LABS: ABG HCO3 26.9 mmol/L (21.0-28.0); ABG OXYGEN SATURATION 98.5 % (95.0-99.0); ABG PCO2 39 mmHg (35-48)
[2021-04-27] MEDS: ATORVASTATIN 40 MG TABLET PO SCH (21:13)
[2021-04-27] MEDS: INSULIN GLARGINE 100 UNITS/ML 10 ML VIAL SQ SCH (21:14)
[2021-04-27 22:38] LABS: ABG BASE EXCESS 3.8 mmol/L (-2.0-3.0); ABG HCO3 28.3 mmol/L (21.0-28.0); ABG OXYGEN SATURATION 98.1 % (95.0-99.0); ABG PCO2 42 mmHg (35-48)
[2021-04-27] MEDS ORDERED: CALCIUM GLUC 1GM/10ML VIAL IV ONE (22:48)
[2021-04-27] MEDS: CALCIUM GLUC 1GM 1 GM in 0.9%NACL 50ML 50 ML IV PRN (23:37)
[2021-04-28] VITALS (42 sets, daily range): BP systolic 95–196; BP diastolic 36–85
[2021-04-28 02:32] LABS: ABG BASE EXCESS -0.4 mmol/L (-2.0-3.0); ABG HCO3 23.7 mmol/L (21.0-28.0); ABG OXYGEN SATURATION 97.6 % (95.0-99.0); ABG PCO2 37 mmHg (35-48)
[2021-04-28] MEDS ORDERED: CALCIUM GLUC 1GM/10ML VIAL IV ONE (03:23)
[2021-04-28] MEDS: CALCIUM GLUC 1GM 1 GM in 0.9%NACL 50ML 50 ML IV PRN (03:29)
[2021-04-28 05:49] LABS: BASOPHILS % (AUTO) 0.6 % (0.0-5.0); EOSINOPHILS % (AUTO) 1.3 % (0.0-8.0); HEMATOCRIT 33.6 % (42-54); LYMPHOCYTES % (AUTO) 6.1 % (21.0-51.0); MEAN CORPUSCULAR HEMOGLOBIN 26.6 pg (27.0-33.0); MEAN CORPUSCULAR HGB CONC 31.8 g/dL (32.0-36.0); MEAN CORPUSCULAR VOLUME 83.4 fL (79-99); MONOCYTES % (AUTO) 10.4 % (3.0-13.0); NEUTROPHILS % (AUTO) 80.5 % (40.0-77.0); NUCLEATED RED BLOOD CELLS 0.2 % (0.0-0.19); PLATELET COUNT (AUTO) 120 K/uL (130-400); RED BLOOD CELL COUNT(AUTO) 4.03 MIL/uL (4.50-6.20); RED CELL DISTRIBUTION WIDTH 14.5 % (11.0-15.5); WHITE BLOOD COUNT (AUTO) 9.9 K/uL (4.8-10.8)
[2021-04-28 06:06] LABS: INR 1.18 (0.85-1.15); PROTHROMBIN TIME 12.7 SEC (9.6-11.6)
[2021-04-28 06:07] LABS: PARTIAL THROMBOPLASTIN TIME 26.9 SEC (26.3-35.5)
[2021-04-28 06:18] LABS: ALBUMIN 1.9 g/dL (3.5-5.0); BILIRUBIN,TOTAL 0.7 mg/dL (0.2-1.0); CREATININE 0.8 mg/dL (0.5-1.5); MAGNESIUM 1.8 mg/dL (1.80-2.40); POTASSIUM 4.2 mmol/L (3.5-5.1); TOTAL PROTEIN, SERUM 5.8 g/dL (6.0-8.3)
[2021-04-28] MEDS: INSULIN HUMULIN R 100 UNIT/ML 3ML SQ SCH ×4 (06:46→18:00)
[2021-04-28] MEDS: MIDAZOLAM 100MG-0.9% NS 100ML 100 ML IV SCH (07:00)
[2021-04-28] MEDS ORDERED: AMIODARONE 150MG VIAL 150 MG in DEXTROSE 5%-WATER 100 ML IV SCH (08:00)
[2021-04-28] MEDS: AMIODARONE 900MG VIAL 450 MG in DEXTROSE 5%-WATER 250 ML IV SCH (08:15)
[2021-04-28] MEDS ORDERED: ENOXAPARIN SODIUM 30 MG/0.3 ML SQ SCH (09:00)
[2021-04-28] MEDS: DOCUSATE SODIUM 100 MG CAP PO SCH (09:00)
[2021-04-28] MEDS: AZITHROMYCIN 500MG+NS 250ML IV SCH (09:53)
[2021-04-28] MEDS: 0.9% NACL 250ML 250 ML IV SCH (09:55)
[2021-04-28] MEDS: CEFTRIAXONE 1G VIAL IVP SCH (09:56)
[2021-04-28] MEDS: FAMOTIDINE 20MG VIAL IV SCH ×2 (09:56→21:10)
[2021-04-28] MEDS: ASPIRIN 81MG CHEW TAB PO SCH (09:56)
[2021-04-28] MEDS: SENNOSIDES 8.6 MG TABLET PO SCH (09:56)
[2021-04-28] MEDS: FUROSEMIDE 20MG VIAL IV SCH ×2 (09:59→21:10)
[2021-04-28 10:29] LABS: ABG BASE EXCESS 3.1 mmol/L (-2.0-3.0); ABG HCO3 28.1 mmol/L (21.0-28.0); ABG OXYGEN SATURATION 98.4 % (95.0-99.0); ABG PCO2 45 mmHg (35-48)
[2021-04-28] MEDS ORDERED: VANCOMYCIN PROTOCOL PER PHARMACY IV SCH (14:30)
[2021-04-28] MEDS ORDERED: PHARMACY COMMUNICATION MISC SCH (14:30)
[2021-04-28] MEDS ORDERED: ZOSYN 3.375GM+NS 50ML 3.38 GM in 0.9%NACL 50ML 50 ML IV SCH (14:30)
[2021-04-28] MEDS ORDERED: COMPOUND IV REFRIGERATED 1 EACH IVSOLN MISC PRN (15:00)
[2021-04-28 15:34] LABS: CREATININE 0.9 mg/dL (0.5-1.5); POTASSIUM 4.4 mmol/L (3.5-5.1)
[2021-04-28] MEDS: ZOSYN 3.375GM +NS 50ML IV SCH ×2 (15:46→23:23)
[2021-04-28 17:06] LABS: APPEARANCE,URINE Clear (CLEAR); BILIRUBIN,URINE Negative (NEGATIVE); COLOR,URINE Yellow (YELLOW); GLUCOSE, URINE (UA) >=1000 mg/dL (NEGATIVE); KETONES,URINE Negative (NEGATIVE); LEUKOCYTE ESTERASE ,URINE Negative (NEGATIVE); NITRATE,URINE Negative (NEGATIVE); OCCULT BLOOD,URINE Moderate (NEGATIVE); PROTEIN,URINE POS 1+ mg/dL (NEGATIVE)
[2021-04-28 17:13] LABS: BACTERIA,URINE Few /HPF (None Seen); MUCUS,URINE Few LPF (None Seen); SQUAMOUS EPITHELIAL CELL,UR Few /HPF (0-2)
[2021-04-28] MEDS: VANCOMYCIN 1.25GM/NS 250ML IVPB SCH ×2 (19:46)
[2021-04-28] MEDS: ATORVASTATIN 40 MG TABLET PO SCH (21:10)
[2021-04-28] MEDS: INSULIN GLARGINE 100 UNITS/ML 10 ML VIAL SQ SCH (21:15)
[2021-04-29] VITALS (36 sets, daily range): BP systolic 98–145; BP diastolic 43–66
[2021-04-29] MEDS: INSULIN HUMULIN R 100 UNIT/ML 3ML SQ SCH ×4 (00:11→18:00)
[2021-04-29 04:00] LABS: ABG BASE EXCESS 8.7 mmol/L (-2.0-3.0); ABG HCO3 33.3 mmol/L (21.0-28.0); ABG OXYGEN SATURATION 97.8 % (95.0-99.0); ABG PCO2 46 mmHg (35-48)
[2021-04-29 04:02] LABS: BASOPHILS % (AUTO) 0.5 % (0.0-5.0); EOSINOPHILS % (AUTO) 2.1 % (0.0-8.0); LYMPHOCYTES % (AUTO) 6.6 % (21.0-51.0); MEAN CORPUSCULAR HGB CONC 32.1 g/dL (32.0-36.0); MONOCYTES % (AUTO) 10.1 % (3.0-13.0); NEUTROPHILS % (AUTO) 79.7 % (40.0-77.0); NUCLEATED RED BLOOD CELLS 0.2 % (0.0-0.19); PLATELET COUNT (AUTO) 167 K/uL (130-400); RED BLOOD CELL COUNT(AUTO) 3.93 MIL/uL (4.50-6.20); RED CELL DISTRIBUTION WIDTH 14.3 % (11.0-15.5); WHITE BLOOD COUNT (AUTO) 10.8 K/uL (4.8-10.8)
[2021-04-29 04:15] LABS: INR 1.24 (0.85-1.15); PROTHROMBIN TIME 13.3 SEC (9.6-11.6)
[2021-04-29 04:16] LABS: PARTIAL THROMBOPLASTIN TIME 27.9 SEC (26.3-35.5)
[2021-04-29 04:22] LABS: ALBUMIN 1.9 g/dL (3.5-5.0); BILIRUBIN,TOTAL 0.7 mg/dL (0.2-1.0); CREATININE 0.8 mg/dL (0.5-1.5); MAGNESIUM 1.8 mg/dL (1.80-2.40); POTASSIUM 3.5 mmol/L (3.5-5.1); TOTAL PROTEIN, SERUM 5.8 g/dL (6.0-8.3)
[2021-04-29] MEDS: POTASSIUM CHLORIDE 20MEQ/100ML 100 ML IV PRN (04:31)
[2021-04-29] MEDS: MAGNESIUM 2GM PREMIX 50ML 50 ML IV PRN (04:32)
[2021-04-29] MEDS ORDERED: 0.9%NACL 50ML 50 ML IV ONE (05:48)
[2021-04-29] MEDS: ZOSYN 3.375GM +NS 50ML IV SCH ×2 (05:50→15:29)
[2021-04-29] MEDS: SODIUM CHLORIDE 3% FOR INHALATION 4 ML/AMP VIAL.NEB IH SCH ×3 (06:42→19:11)
[2021-04-29] MEDS: MIDAZOLAM 100MG-0.9% NS 100ML 100 ML IV SCH (06:48)
[2021-04-29] MEDS: DOCUSATE SODIUM 100 MG CAP PO SCH (09:00)
[2021-04-29] MEDS: SENNOSIDES 8.6 MG TABLET PO SCH (09:00)
[2021-04-29] MEDS: ASPIRIN 81MG CHEW TAB PO SCH (09:00)
[2021-04-29] MEDS: VANCOMYCIN 1.25GM/NS 250ML IVPB SCH ×4 (09:00→21:18)
[2021-04-29 11:58] LABS: INR 1.21 (0.85-1.15)
[2021-04-29 11:59] LABS: PARTIAL THROMBOPLASTIN TIME 28.2 SEC (26.3-35.5)
[2021-04-29] MEDS: FAMOTIDINE 20MG VIAL IV SCH ×2 (13:50→20:52)
[2021-04-29] MEDS: FUROSEMIDE 20MG VIAL IV SCH ×2 (13:50→20:58)
[2021-04-29] MEDS ORDERED: AMIODARONE 150MG VIAL 150 MG in DEXTROSE 5%-WATER 100 ML IV SCH (16:30)
[2021-04-29] MEDS: ACETAMINOPHEN 325 MG TAB PO PRN ×2 (16:42→23:15)
[2021-04-29] MEDS: DEXMEDETOMIDINE 400MCG/NS100ML IV SCH (20:28)
[2021-04-29] MEDS: ATORVASTATIN 40 MG TABLET PO SCH (20:57)
[2021-04-29] MEDS ORDERED: INSULIN GLARGINE 100 UNITS/ML 10 ML VIAL SQ SCH (21:00)
[2021-04-29] MEDS: CEFTAZIDIME PENTAHYDRATE 2 GM/VIAL IVP SCH (23:30)
[2021-04-29] MEDS ORDERED: RENAL DOSE IV SCH (23:30)
[2021-04-29 23:50] LABS: MAGNESIUM 2.1 mg/dL (1.80-2.40); POTASSIUM 3.9 mmol/L (3.5-5.1)
[2021-04-30] VITALS (31 sets, daily range): BP systolic 108–156; BP diastolic 32–98
[2021-04-30] MEDS: SODIUM CHLORIDE 3% FOR INHALATION 4 ML/AMP VIAL.NEB IH SCH ×3 (00:29→11:35)
[2021-04-30 04:05] LABS: BASOPHILS % (AUTO) 0.5 % (0.0-5.0); EOSINOPHILS % (AUTO) 0.7 % (0.0-8.0); HEMATOCRIT 32.4 % (42-54); LYMPHOCYTES % (AUTO) 4.7 % (21.0-51.0); MEAN CORPUSCULAR HEMOGLOBIN 26.9 pg (27.0-33.0); MEAN CORPUSCULAR HGB CONC 31.8 g/dL (32.0-36.0); MEAN CORPUSCULAR VOLUME 84.6 fL (79-99); MONOCYTES % (AUTO) 8.8 % (3.0-13.0); NEUTROPHILS % (AUTO) 84.1 % (40.0-77.0); PLATELET COUNT (AUTO) 173 K/uL (130-400); RED BLOOD CELL COUNT(AUTO) 3.83 MIL/uL (4.50-6.20); RED CELL DISTRIBUTION WIDTH 14.5 % (11.0-15.5); WHITE BLOOD COUNT (AUTO) 11.2 K/uL (4.8-10.8)
[2021-04-30 04:19] LABS: INR 1.36 (0.85-1.15); PROTHROMBIN TIME 14.4 SEC (9.6-11.6)
[2021-04-30 04:20] LABS: ALBUMIN 1.9 g/dL (3.5-5.0); BILIRUBIN,TOTAL 0.8 mg/dL (0.2-1.0); MAGNESIUM 2.2 mg/dL (1.80-2.40); PARTIAL THROMBOPLASTIN TIME 29.7 SEC (26.3-35.5); POTASSIUM 4.1 mmol/L (3.5-5.1); TOTAL PROTEIN, SERUM 5.8 g/dL (6.0-8.3)
[2021-04-30] MEDS: DEXMEDETOMIDINE 400MCG/NS100ML IV SCH (04:49)
[2021-04-30] MEDS: LEVOFLOXACIN 500 MG/D5W 100 ML 100 ML IV SCH ×2 (05:11→22:42)
[2021-04-30] MEDS: INSULIN HUMULIN R 100 UNIT/ML 3ML SQ SCH ×3 (05:28→17:34)
[2021-04-30 07:33] LABS: ABG BASE EXCESS 2.7 mmol/L (-2.0-3.0); ABG HCO3 26.2 mmol/L (21.0-28.0); ABG OXYGEN SATURATION 98.5 % (95.0-99.0); ABG PCO2 36 mmHg (35-48)
[2021-04-30] MEDS: HEPARIN 25,000 UNITS/250ML D5W 250 ML IV SCH (08:29)
[2021-04-30] MEDS: VANCOMYCIN 1.25GM/NS 250ML IVPB SCH ×4 (08:41→20:26)
[2021-04-30] MEDS: FUROSEMIDE 20MG VIAL IV SCH ×2 (09:06→20:27)
[2021-04-30] MEDS: FAMOTIDINE 20MG VIAL IV SCH ×2 (09:06→20:24)
[2021-04-30] MEDS: DOCUSATE SODIUM 100 MG CAP PO SCH (09:07)
[2021-04-30] MEDS: ASPIRIN 81MG CHEW TAB PO SCH (09:07)
[2021-04-30] MEDS: SENNOSIDES 8.6 MG TABLET PO SCH (09:07)
[2021-04-30 10:17] LABS: ABG BASE EXCESS 4.5 mmol/L (-2.0-3.0); ABG HCO3 28.9 mmol/L (21.0-28.0); ABG OXYGEN SATURATION 97.6 % (95.0-99.0); ABG PCO2 42 mmHg (35-48)
[2021-04-30 11:54] LABS: POTASSIUM 3.4 mmol/L (3.5-5.1)
[2021-04-30 12:05] LABS: ABG BASE EXCESS 2.7 mmol/L (-2.0-3.0); ABG HCO3 26.9 mmol/L (21.0-28.0); ABG OXYGEN SATURATION 99.1 % (95.0-99.0); ABG PCO2 40 mmHg (35-48)
[2021-04-30] MEDS: CEFTAZIDIME PENTAHYDRATE 2 GM/VIAL IVP SCH ×2 (12:14→22:42)
[2021-04-30] MEDS ORDERED: LIDOCAINE HCL 1% 20 ML VIAL ONE (13:08)
[2021-04-30] MEDS: POTASSIUM CHLORIDE 20MEQ/100ML 100 ML IV PRN ×2 (13:52→20:27)
[2021-04-30] MEDS: EPINEPHRINE PF 1MG AMP 10 MG in 0.9% NACL 250ML 240 ML IV PRN (13:58)
[2021-04-30 14:15] LABS: INR 1.55 (0.85-1.15); PROTHROMBIN TIME 16.2 SEC (9.6-11.6)
[2021-04-30 14:16] LABS: PARTIAL THROMBOPLASTIN TIME 59.5 SEC (26.3-35.5)
[2021-04-30] MEDS: DEXTROSE 5% IJ SCH (18:29)
[2021-04-30] MEDS: HEPARIN IJ SCH (18:29)
[2021-04-30] MEDS: WATER IJ SCH (18:29)
[2021-04-30] MEDS: ATORVASTATIN 40 MG TABLET PO SCH (20:27)
[2021-04-30] MEDS ORDERED: INSULIN GLARGINE 100 UNITS/ML 10 ML VIAL SQ SCH (21:00)
[2021-05-01] VITALS (22 sets, daily range): BP systolic 120–173; BP diastolic 40–89
[2021-05-01] MEDS: INSULIN HUMULIN R 100 UNIT/ML 3ML SQ SCH ×5 (00:10→23:27)
[2021-05-01 03:41] LABS: BASOPHILS % (AUTO) 0.7 % (0.0-5.0); EOSINOPHILS % (AUTO) 4.2 % (0.0-8.0); HEMATOCRIT 31.7 % (42-54); MEAN CORPUSCULAR HEMOGLOBIN 26.6 pg (27.0-33.0); MEAN CORPUSCULAR HGB CONC 32.5 g/dL (32.0-36.0); MEAN CORPUSCULAR VOLUME 81.9 fL (79-99); MONOCYTES % (AUTO) 6.5 % (3.0-13.0); NEUTROPHILS % (AUTO) 82.9 % (40.0-77.0); PLATELET COUNT (AUTO) 220 K/uL (130-400); RED BLOOD CELL COUNT(AUTO) 3.87 MIL/uL (4.50-6.20); WHITE BLOOD COUNT (AUTO) 11.7 K/uL (4.8-10.8)
[2021-05-01 03:51] LABS: INR 1.57 (0.85-1.15); PROTHROMBIN TIME 16.4 SEC (9.6-11.6)
[2021-05-01 03:53] LABS: PARTIAL THROMBOPLASTIN TIME 45.8 SEC (26.3-35.5)
[2021-05-01 03:57] LABS: ALBUMIN 1.9 g/dL (3.5-5.0); BILIRUBIN,TOTAL 0.7 mg/dL (0.2-1.0); CREATININE 0.7 mg/dL (0.5-1.5); MAGNESIUM 2.1 mg/dL (1.80-2.40); POTASSIUM 3.2 mmol/L (3.5-5.1); TOTAL PROTEIN, SERUM 5.7 g/dL (6.0-8.3)
[2021-05-01] MEDS: POTASSIUM CHLORIDE 20MEQ/100ML 100 ML IV PRN ×4 (04:22→13:59)
[2021-05-01] MEDS: AMIODARONE 900MG VIAL 450 MG in DEXTROSE 5%-WATER 250 ML IV SCH ×3 (08:09→23:31)
[2021-05-01] MEDS: HEPARIN 25,000 UNITS/250ML D5W 250 ML IV SCH (08:11)
[2021-05-01] MEDS: VANCOMYCIN 1.25GM/NS 250ML IVPB SCH ×2 (08:53)
[2021-05-01] MEDS: FAMOTIDINE 20MG VIAL IV SCH ×2 (08:53→20:44)
[2021-05-01] MEDS: DOCUSATE SODIUM 100 MG CAP PO SCH (08:53)
[2021-05-01] MEDS: SENNOSIDES 8.6 MG TABLET PO SCH (08:53)
[2021-05-01] MEDS: ASPIRIN 81MG CHEW TAB PO SCH (08:53)
[2021-05-01] MEDS: FUROSEMIDE 20MG VIAL IV SCH (08:53)
[2021-05-01] MEDS ORDERED: PHARMACY COMMUNICATION MISC SCH ×2 (09:00→09:30)
[2021-05-01] MEDS ORDERED: 0.9% NACL 500ML IV.SOLN 500 ML IV SCH (09:30)
[2021-05-01] MEDS: ONDANSETRON 4MG INJ IV PRN ×2 (11:46→17:18)
[2021-05-01 12:04] LABS: MAGNESIUM 1.9 mg/dL (1.80-2.40); POTASSIUM 3.3 mmol/L (3.5-5.1)
[2021-05-01] MEDS: CEFTAZIDIME PENTAHYDRATE 2 GM/VIAL IVP SCH ×2 (12:22→23:23)
[2021-05-01] MEDS: MAGNESIUM 2GM PREMIX 50ML 50 ML IV PRN (12:23)
[2021-05-01] MEDS: ARTIFICAL TEARS SOL 15 ML OU PRN (12:42)
[2021-05-01] MEDS: ACETAMINOPHEN 325 MG TAB PO PRN (15:21)
[2021-05-01] MEDS: ATORVASTATIN 40 MG TABLET PO SCH (20:44)
[2021-05-01] MEDS ORDERED: INSULIN GLARGINE 100 UNITS/ML 10 ML VIAL SQ SCH (21:00)
[2021-05-01] MEDS: VANCOMYCIN 1G 1.5 GM in 0.9% NACL 250ML 250 ML IVPB SCH (21:02)
[2021-05-01] MEDS: LEVOFLOXACIN 500 MG/D5W 100 ML 100 ML IV SCH (23:23)
[2021-05-02] VITALS (25 sets, daily range): BP systolic 109–168; BP diastolic 35–84
[2021-05-02] MEDS: HEPARIN 25,000 UNITS/250ML D5W 250 ML IV SCH (01:36)
[2021-05-02] MEDS: ARTIFICAL TEARS SOL 15 ML OU PRN (02:07)
[2021-05-02] MEDS: ACETAMINOPHEN 325 MG TAB PO PRN ×2 (02:11→08:08)
[2021-05-02 04:16] LABS: BASOPHILS % (AUTO) 0.5 % (0.0-5.0); EOSINOPHILS % (AUTO) 3.4 % (0.0-8.0); HEMATOCRIT 31.4 % (42-54); LYMPHOCYTES % (AUTO) 5.2 % (21.0-51.0); MEAN CORPUSCULAR HEMOGLOBIN 26.9 pg (27.0-33.0); MEAN CORPUSCULAR HGB CONC 32.5 g/dL (32.0-36.0); MEAN CORPUSCULAR VOLUME 82.8 fL (79-99); MONOCYTES % (AUTO) 5.7 % (3.0-13.0); NEUTROPHILS % (AUTO) 84.2 % (40.0-77.0); PLATELET COUNT (AUTO) 233 K/uL (130-400); RED BLOOD CELL COUNT(AUTO) 3.79 MIL/uL (4.50-6.20); RED CELL DISTRIBUTION WIDTH 14.2 % (11.0-15.5)
[2021-05-02 04:32] LABS: INR 1.64 (0.85-1.15); PROTHROMBIN TIME 17.1 SEC (9.6-11.6)
[2021-05-02 04:35] LABS: ALBUMIN 1.9 g/dL (3.5-5.0); BILIRUBIN,TOTAL 0.6 mg/dL (0.2-1.0); CREATININE 0.6 mg/dL (0.5-1.5); MAGNESIUM 1.8 mg/dL (1.80-2.40); POTASSIUM 3.6 mmol/L (3.5-5.1); TOTAL PROTEIN, SERUM 5.5 g/dL (6.0-8.3)
[2021-05-02] MEDS: POTASSIUM CHLORIDE 20MEQ/100ML 100 ML IV PRN ×5 (05:19→22:21)
[2021-05-02] MEDS: MAGNESIUM 2GM PREMIX 50ML 50 ML IV PRN ×3 (05:20→21:25)
[2021-05-02] MEDS: INSULIN HUMULIN R 100 UNIT/ML 3ML SQ SCH ×3 (05:45→16:57)
[2021-05-02 07:25] LABS: PARTIAL THROMBOPLASTIN TIME 109.6 SEC (26.3-35.5)
[2021-05-02] MEDS: DOCUSATE SODIUM 100 MG CAP PO SCH (08:07)
[2021-05-02] MEDS: SENNOSIDES 8.6 MG TABLET PO SCH (08:07)
[2021-05-02] MEDS: ASPIRIN 81MG CHEW TAB PO SCH (08:08)
[2021-05-02] MEDS: FAMOTIDINE 20MG VIAL IV SCH ×2 (08:09→20:44)
[2021-05-02] MEDS: AMIODARONE 900MG VIAL 450 MG in DEXTROSE 5%-WATER 250 ML IV SCH ×2 (08:33→21:00)
[2021-05-02] MEDS: VANCOMYCIN 1G 1.5 GM in 0.9% NACL 250ML 250 ML IVPB SCH ×2 (08:35→20:43)
[2021-05-02] MEDS ORDERED: FUROSEMIDE 20MG VIAL IV SCH (09:00)
[2021-05-02] MEDS: CEFTAZIDIME PENTAHYDRATE 2 GM/VIAL IVP SCH ×2 (11:31→23:29)
[2021-05-02 14:09] LABS: MAGNESIUM 2.2 mg/dL (1.80-2.40); POTASSIUM 3.8 mmol/L (3.5-5.1)
[2021-05-02] MEDS: FUROSEMIDE 20MG VIAL IV SCH (16:55)
[2021-05-02] MEDS: ATORVASTATIN 40 MG TABLET PO SCH (20:43)
[2021-05-02 20:50] LABS: MAGNESIUM 1.9 mg/dL (1.80-2.40); POTASSIUM 3.6 mmol/L (3.5-5.1)
[2021-05-02] MEDS: INSULIN GLARGINE 100 UNITS/ML 10 ML VIAL SQ SCH (20:50)
[2021-05-02] MEDS: EPINEPHRINE PF 1MG AMP 10 MG in 0.9% NACL 250ML 240 ML IV PRN (20:53)
[2021-05-02] MEDS: LEVOFLOXACIN 500 MG/D5W 100 ML 100 ML IV SCH (23:30)
[2021-05-03] VITALS (22 sets, daily range): BP systolic 124–289; BP diastolic 34–280
[2021-05-03] MEDS: INSULIN HUMULIN R 100 UNIT/ML 3ML SQ SCH ×5 (00:24→20:48)
[2021-05-03] MEDS: FUROSEMIDE 20MG VIAL IV SCH ×3 (00:33→17:03)
[2021-05-03] MEDS: POTASSIUM CHLORIDE 20MEQ/100ML 100 ML IV PRN ×4 (00:35→12:54)
[2021-05-03] MEDS: ARTIFICAL TEARS SOL 15 ML OU PRN (00:35)
[2021-05-03 03:51] LABS: BASOPHILS % (AUTO) 0.5 % (0.0-5.0); EOSINOPHILS % (AUTO) 1.3 % (0.0-8.0); HEMATOCRIT 32.5 % (42-54); LYMPHOCYTES % (AUTO) 3.7 % (21.0-51.0); MEAN CORPUSCULAR HGB CONC 33.2 g/dL (32.0-36.0); MEAN CORPUSCULAR VOLUME 81.3 fL (79-99); MONOCYTES % (AUTO) 4.9 % (3.0-13.0); NEUTROPHILS % (AUTO) 88.6 % (40.0-77.0); PLATELET COUNT (AUTO) 303 K/uL (130-400); RED CELL DISTRIBUTION WIDTH 14.6 % (11.0-15.5); WHITE BLOOD COUNT (AUTO) 14.5 K/uL (4.8-10.8)
[2021-05-03 04:01] LABS: ABG BASE EXCESS 2.8 mmol/L (-2.0-3.0); ABG HCO3 26.3 mmol/L (21.0-28.0); ABG OXYGEN SATURATION 98.2 % (95.0-99.0); ABG PCO2 37 mmHg (35-48)
[2021-05-03 04:11] LABS: INR 1.54 (0.85-1.15); PROTHROMBIN TIME 16.1 SEC (9.6-11.6)
[2021-05-03 04:14] LABS: BILIRUBIN,TOTAL 0.5 mg/dL (0.2-1.0); CREATININE 0.7 mg/dL (0.5-1.5); MAGNESIUM 2.3 mg/dL (1.80-2.40); POTASSIUM 3.8 mmol/L (3.5-5.1); TOTAL PROTEIN, SERUM 5.9 g/dL (6.0-8.3)
[2021-05-03] MEDS ORDERED: SUCCINYLCHOLINE CHLORIDE 20 MG/ML 10 ML VIAL ONE (07:38)
[2021-05-03] MEDS ORDERED: DEXAMETHASONE SOD PHOSPHATE 10MG/ML 1ML VIAL ONE (07:38)
[2021-05-03] MEDS ORDERED: ONDANSETRON 4MG INJ ONE (07:38)
[2021-05-03] MEDS ORDERED: LIDOCAINE PF 100MG/5ML (2%) SYRINGE 5ML ONE (07:38)
[2021-05-03] MEDS ORDERED: ROCURONIUM 10MG/1ML SYR 10 MG/ML ML ONE (07:39)
[2021-05-03] MEDS ORDERED: FENTANYL CITRATE PF 50 MCG/1 ML 2ML VIAL ONE ×2 (07:39→08:30)
[2021-05-03] MEDS ORDERED: MIDAZOLAM HCL 1 MG/ML 2ML VIAL ONE ×2 (07:39→08:14)
[2021-05-03] MEDS ORDERED: GLYCOPYRROLATE 1 MG/5 ML SYRINGE ONE (07:39)
[2021-05-03] MEDS ORDERED: NEOSTIGMINE 5MG/5ML SYR IV ONE (07:39)
[2021-05-03] MEDS ORDERED: PROPOFOL 10 MG/ML 20ML VIAL IV ONE ×2 (07:39→08:52)
[2021-05-03] MEDS ORDERED: NOREPINEPHRINE BITARTRATE 1 MG/1 ML ML IV ONE (07:40)
[2021-05-03] MEDS ORDERED: ETOMIDATE 20MG VIAL ONE ×2 (07:40→07:45)
[2021-05-03] MEDS ORDERED: BUPIVACAINE/PF 0.5% 30ML VIAL ONE (08:01)
[2021-05-03] MEDS ORDERED: LIDOCAINE HCL 1% 20 ML VIAL ONE (08:01)
[2021-05-03] MEDS: FAMOTIDINE 20MG VIAL IV SCH (10:04)
[2021-05-03] MEDS ORDERED: TRAMADOL HCL 50 MG TABLET PO PRN ×2 (10:30)
[2021-05-03 10:37] LABS: ABG BASE EXCESS 0.4 mmol/L (-2.0-3.0); ABG HCO3 24.4 mmol/L (21.0-28.0); ABG OXYGEN SATURATION 97.1 % (95.0-99.0); ABG PCO2 37 mmHg (35-48)
[2021-05-03] MEDS: CEFTAZIDIME PENTAHYDRATE 2 GM/VIAL IVP SCH ×2 (10:53→23:32)
[2021-05-03] MEDS: VANCOMYCIN 1G 1.5 GM in 0.9% NACL 250ML 250 ML IVPB SCH ×2 (10:53→20:38)
[2021-05-03] MEDS: DOCUSATE SODIUM 100 MG CAP PO SCH (11:26)
[2021-05-03] MEDS: ASPIRIN 81MG CHEW TAB PO SCH (11:26)
[2021-05-03] MEDS: SENNOSIDES 8.6 MG TABLET PO SCH (11:27)
[2021-05-03] MEDS: AMIODARONE 900MG VIAL 450 MG in DEXTROSE 5%-WATER 250 ML IV SCH (12:50)
[2021-05-03] MEDS: CALCIUM GLUC 1GM 1 GM in 0.9%NACL 50ML 50 ML IV PRN ×2 (13:00→18:10)
[2021-05-03 17:33] LABS: ABG BASE EXCESS 1.2 mmol/L (-2.0-3.0); ABG HCO3 24.8 mmol/L (21.0-28.0); ABG OXYGEN SATURATION 97.5 % (95.0-99.0); ABG PCO2 36 mmHg (35-48)
[2021-05-03] MEDS: ATORVASTATIN 40 MG TABLET PO SCH (20:39)
[2021-05-03] MEDS: INSULIN GLARGINE 100 UNITS/ML 10 ML VIAL SQ SCH (20:41)
[2021-05-03] MEDS: FAMOTIDINE 20MG TAB PO SCH (20:51)
[2021-05-03] MEDS: LEVOFLOXACIN 500 MG/D5W 100 ML 100 ML IV SCH (23:45)
[2021-05-04] VITALS (24 sets, daily range): BP systolic 100–170; BP diastolic 30–88
[2021-05-04] MEDS: FUROSEMIDE 20MG VIAL IV SCH ×3 (01:23→16:17)
[2021-05-04 03:37] LABS: ABG BASE EXCESS 2.5 mmol/L (-2.0-3.0); ABG HCO3 26.2 mmol/L (21.0-28.0); ABG OXYGEN SATURATION 97.8 % (95.0-99.0); ABG PCO2 37 mmHg (35-48)
[2021-05-04 04:26] LABS: BASOPHILS % (AUTO) 0.4 % (0.0-5.0); EOSINOPHILS % (AUTO) 0.9 % (0.0-8.0); HEMATOCRIT 32.3 % (42-54); LYMPHOCYTES % (AUTO) 3.6 % (21.0-51.0); MEAN CORPUSCULAR HEMOGLOBIN 27.1 pg (27.0-33.0); MEAN CORPUSCULAR HGB CONC 32.5 g/dL (32.0-36.0); MEAN CORPUSCULAR VOLUME 83.2 fL (79-99); MONOCYTES % (AUTO) 6.2 % (3.0-13.0); NEUTROPHILS % (AUTO) 87.5 % (40.0-77.0); PLATELET COUNT (AUTO) 362 K/uL (130-400); RED BLOOD CELL COUNT(AUTO) 3.88 MIL/uL (4.50-6.20); RED CELL DISTRIBUTION WIDTH 15.1 % (11.0-15.5); WHITE BLOOD COUNT (AUTO) 14.7 K/uL (4.8-10.8)
[2021-05-04 04:41] LABS: INR 1.47 (0.85-1.15); PROTHROMBIN TIME 15.5 SEC (9.6-11.6)
[2021-05-04 04:43] LABS: PARTIAL THROMBOPLASTIN TIME 28.5 SEC (26.3-35.5)
[2021-05-04 05:10] LABS: ALBUMIN 2.1 g/dL (3.5-5.0); BILIRUBIN,TOTAL 0.5 mg/dL (0.2-1.0); CREATININE 0.7 mg/dL (0.5-1.5); MAGNESIUM 1.7 mg/dL (1.80-2.40); POTASSIUM 3.6 mmol/L (3.5-5.1)
[2021-05-04] MEDS: INSULIN HUMULIN R 100 UNIT/ML 3ML SQ SCH ×4 (06:50→20:44)
[2021-05-04] MEDS: AMIODARONE 900MG VIAL 450 MG in DEXTROSE 5%-WATER 250 ML IV SCH (06:55)
[2021-05-04] MEDS: POTASSIUM CHLORIDE 20MEQ/100ML 100 ML IV PRN ×3 (07:51→21:54)
[2021-05-04] MEDS: MAGNESIUM 2GM PREMIX 50ML 50 ML IV PRN ×2 (07:51→23:13)
[2021-05-04] MEDS: ASPIRIN 81MG CHEW TAB PO SCH (07:52)
[2021-05-04] MEDS: DOCUSATE SODIUM 100 MG CAP PO SCH (07:52)
[2021-05-04] MEDS: VANCOMYCIN 1G 1.5 GM in 0.9% NACL 250ML 250 ML IVPB SCH (07:52)
[2021-05-04] MEDS: SENNOSIDES 8.6 MG TABLET PO SCH (07:52)
[2021-05-04] MEDS: FAMOTIDINE 20MG TAB PO SCH ×2 (08:00→20:33)
[2021-05-04] MEDS: CEFTAZIDIME PENTAHYDRATE 2 GM/VIAL IVP SCH (11:20)
[2021-05-04] MEDS ORDERED: DIPHENHYDRAMINE HCL 25 MG CAPSULE PO PRN (12:00)
[2021-05-04] MEDS ORDERED: HYDROCORTISONE 1% CREAM 28G TP SCH (17:30)
[2021-05-04] MEDS ORDERED: FOLIC ACID 1 MG TABLET PO ONE (18:00)
[2021-05-04 18:47] LABS: ABG BASE EXCESS 2.1 mmol/L (-2.0-3.0); ABG HCO3 25.2 mmol/L (21.0-28.0); ABG OXYGEN SATURATION 92.7 % (95.0-99.0); ABG PCO2 34 mmHg (35-48)
[2021-05-04] MEDS: AMIODARONE 200 MG TABLET PO SCH (20:33)
[2021-05-04] MEDS: ATORVASTATIN 40 MG TABLET PO SCH (20:33)
[2021-05-04] MEDS: INSULIN GLARGINE 100 UNITS/ML 10 ML VIAL SQ SCH (20:43)
[2021-05-04 21:36] LABS: MAGNESIUM 1.8 mg/dL (1.80-2.40); POTASSIUM 3.4 mmol/L (3.5-5.1)
[2021-05-05] VITALS (41 sets, daily range): BP systolic 95–288; BP diastolic 25–286
[2021-05-05] MEDS: FUROSEMIDE 20MG VIAL IV SCH ×2 (05:16→16:30)
[2021-05-05] MEDS: POTASSIUM CHLORIDE 20MEQ/100ML 100 ML IV PRN ×2 (05:16→09:23)
[2021-05-05 06:35] LABS: BASOPHILS % (AUTO) 0.6 % (0.0-5.0); LYMPHOCYTES % (AUTO) 4.8 % (21.0-51.0); MEAN CORPUSCULAR HEMOGLOBIN 26.8 pg (27.0-33.0); MEAN CORPUSCULAR HGB CONC 32.3 g/dL (32.0-36.0); MEAN CORPUSCULAR VOLUME 83.1 fL (79-99); MONOCYTES % (AUTO) 6.8 % (3.0-13.0); NEUTROPHILS % (AUTO) 85.4 % (40.0-77.0); PLATELET COUNT (AUTO) 473 K/uL (130-400); RED BLOOD CELL COUNT(AUTO) 3.73 MIL/uL (4.50-6.20); RED CELL DISTRIBUTION WIDTH 15.6 % (11.0-15.5); WHITE BLOOD COUNT (AUTO) 12.6 K/uL (4.8-10.8)
[2021-05-05 06:44] LABS: CREATININE 0.7 mg/dL (0.5-1.5); MAGNESIUM 2.3 mg/dL (1.80-2.40); POTASSIUM 3.6 mmol/L (3.5-5.1)
[2021-05-05 07:09] LABS: ABG BASE EXCESS 2.4 mmol/L (-2.0-3.0); ABG HCO3 25.5 mmol/L (21.0-28.0); ABG OXYGEN SATURATION 94.7 % (95.0-99.0); ABG PCO2 34 mmHg (35-48)
[2021-05-05] MEDS: INSULIN HUMULIN R 100 UNIT/ML 3ML SQ SCH ×4 (07:23→21:11)
[2021-05-05] MEDS: DOCUSATE SODIUM 100 MG CAP PO SCH (08:21)
[2021-05-05] MEDS: ASPIRIN 81MG CHEW TAB PO SCH (08:21)
[2021-05-05] MEDS: AMIODARONE 200 MG TABLET PO SCH ×2 (08:22→20:45)
[2021-05-05] MEDS: FOLIC ACID 1 MG TABLET PO SCH (08:22)
[2021-05-05] MEDS: FAMOTIDINE 20MG TAB PO SCH ×2 (08:22→20:46)
[2021-05-05] MEDS: SENNOSIDES 8.6 MG TABLET PO SCH (08:23)
[2021-05-05] MEDS: THIAMINE HCL 100 MG TABLET PO SCH (08:23)
[2021-05-05] MEDS: ENOXAPARIN SODIUM 30 MG/0.3 ML SQ SCH (08:24)
[2021-05-05] MEDS: EPINEPHRINE PF 1MG AMP 10 MG in 0.9% NACL 250ML 240 ML IV PRN (10:09)
[2021-05-05] MEDS: TRIAMCINOLONE ACETONIDE 0.1% CREAM 15GM TP SCH ×2 (18:17→20:46)
[2021-05-05 19:46] LABS: ABG BASE EXCESS 3.1 mmol/L (-2.0-3.0); ABG HCO3 25.5 mmol/L (21.0-28.0); ABG OXYGEN SATURATION 96.5 % (95.0-99.0); ABG PCO2 33 mmHg (35-48)
[2021-05-05] MEDS: ATORVASTATIN 40 MG TABLET PO SCH (20:45)
[2021-05-05] MEDS: INSULIN GLARGINE 100 UNITS/ML 10 ML VIAL SQ SCH (21:12)
[2021-05-06] VITALS (41 sets, daily range): BP systolic 98–157; BP diastolic 32–86
[2021-05-06] MEDS: FUROSEMIDE 20MG VIAL IV SCH ×2 (05:39→16:04)
[2021-05-06] MEDS: INSULIN HUMULIN R 100 UNIT/ML 3ML SQ SCH ×4 (05:42→19:39)
[2021-05-06 06:40] LABS: BASOPHILS % (AUTO) 0.9 % (0.0-5.0); EOSINOPHILS % (AUTO) 2.1 % (0.0-8.0); HEMATOCRIT 30.8 % (42-54); MEAN CORPUSCULAR HEMOGLOBIN 26.8 pg (27.0-33.0); MEAN CORPUSCULAR HGB CONC 32.1 g/dL (32.0-36.0); MEAN CORPUSCULAR VOLUME 83.2 fL (79-99); MONOCYTES % (AUTO) 10.1 % (3.0-13.0); NEUTROPHILS % (AUTO) 79.5 % (40.0-77.0); PLATELET COUNT (AUTO) 443 K/uL (130-400); RED CELL DISTRIBUTION WIDTH 15.6 % (11.0-15.5); WHITE BLOOD COUNT (AUTO) 8.1 K/uL (4.8-10.8)
[2021-05-06 07:03] LABS: CREATININE 0.7 mg/dL (0.5-1.5); MAGNESIUM 1.8 mg/dL (1.80-2.40); POTASSIUM 3.5 mmol/L (3.5-5.1)
[2021-05-06 07:23] LABS: ABG OXYGEN SATURATION 95.2 % (95.0-99.0); ABG PCO2 34 mmHg (35-48)
[2021-05-06] MEDS: MAGNESIUM 2GM PREMIX 50ML 50 ML IV PRN (07:40)
[2021-05-06] MEDS: AMIODARONE 200 MG TABLET PO SCH ×2 (08:11→21:08)
[2021-05-06] MEDS: ENOXAPARIN SODIUM 30 MG/0.3 ML SQ SCH (08:11)
[2021-05-06] MEDS: FAMOTIDINE 20MG TAB PO SCH ×2 (08:11→21:08)
[2021-05-06] MEDS: THIAMINE HCL 100 MG TABLET PO SCH (08:12)
[2021-05-06] MEDS: ASPIRIN 81MG CHEW TAB PO SCH (08:12)
[2021-05-06] MEDS: DOCUSATE SODIUM 100 MG CAP PO SCH (08:12)
[2021-05-06] MEDS: SENNOSIDES 8.6 MG TABLET PO SCH (08:12)
[2021-05-06] MEDS: FOLIC ACID 1 MG TABLET PO SCH (08:12)
[2021-05-06] MEDS: TRIAMCINOLONE ACETONIDE 0.1% CREAM 15GM TP SCH ×3 (08:13→21:09)
[2021-05-06] MEDS ORDERED: KCL 20 MEQ ERTAB PO ONE (09:30)
[2021-05-06] MEDS ORDERED: KCL 20 MEQ ERTAB PO SCH ×2 (09:30→11:30)
[2021-05-06] MEDS: CLOPIDOGREL 75MG TAB PO SCH (10:40)
[2021-05-06 19:06] LABS: ABG BASE EXCESS 0.8 mmol/L (-2.0-3.0); ABG OXYGEN SATURATION 74.7 % (95.0-99.0); ABG PCO2 33 mmHg (35-48)
[2021-05-06] MEDS: ATORVASTATIN 40 MG TABLET PO SCH (21:08)
[2021-05-06] MEDS: INSULIN GLARGINE 100 UNITS/ML 10 ML VIAL SQ SCH (21:09)
[2021-05-07] VITALS (11 sets, daily range): BP systolic 91–158; BP diastolic 50–96
[2021-05-07 03:41] LABS: HEMATOCRIT 31.5 % (42-54); MEAN CORPUSCULAR HEMOGLOBIN 26.8 pg (27.0-33.0); MEAN CORPUSCULAR HGB CONC 32.4 g/dL (32.0-36.0); MEAN CORPUSCULAR VOLUME 82.7 fL (79-99); RED BLOOD CELL COUNT(AUTO) 3.81 MIL/uL (4.50-6.20); RED CELL DISTRIBUTION WIDTH 15.6 % (11.0-15.5); WHITE BLOOD COUNT (AUTO) 6.4 K/uL (4.8-10.8)
[2021-05-07 04:02] LABS: CREATININE 0.8 mg/dL (0.5-1.5); POTASSIUM 3.8 mmol/L (3.5-5.1)
[2021-05-07] MEDS: FUROSEMIDE 20MG VIAL IV SCH ×2 (05:29→18:06)
[2021-05-07] MEDS ORDERED: POTASSIUM CHLORIDE 10% ELIXIR 20 MEQ/15 ML UDCUP ONE (05:35)
[2021-05-07] MEDS ORDERED: POTASSIUM CHLORIDE 10% ELIXIR 20 MEQ/15 ML UDCUP PO PRN (06:00)
[2021-05-07] MEDS ORDERED: KCL 20 MEQ ERTAB PO PRN (06:00)
[2021-05-07] MEDS: INSULIN HUMULIN R 100 UNIT/ML 3ML SQ SCH ×4 (06:05→21:00)
[2021-05-07] MEDS: AMIODARONE 200 MG TABLET PO SCH ×2 (08:21→21:02)
[2021-05-07] MEDS: FOLIC ACID 1 MG TABLET PO SCH (08:21)
[2021-05-07] MEDS: CLOPIDOGREL 75MG TAB PO SCH (08:21)
[2021-05-07] MEDS: SENNOSIDES 8.6 MG TABLET PO SCH (08:22)
[2021-05-07] MEDS: THIAMINE HCL 100 MG TABLET PO SCH (08:22)
[2021-05-07] MEDS: ASPIRIN 81MG CHEW TAB PO SCH (08:22)
[2021-05-07] MEDS: FAMOTIDINE 20MG TAB PO SCH ×2 (08:22→21:02)
[2021-05-07] MEDS: DOCUSATE SODIUM 100 MG CAP PO SCH (08:22)
[2021-05-07] MEDS: ACETAMINOPHEN 325 MG TAB PO PRN (08:23)
[2021-05-07] MEDS: ENOXAPARIN SODIUM 30 MG/0.3 ML SQ SCH (08:24)
[2021-05-07] MEDS: TRIAMCINOLONE ACETONIDE 0.1% CREAM 15GM TP SCH ×3 (08:30→21:02)
[2021-05-07] MEDS: ATORVASTATIN 40 MG TABLET PO SCH (21:02)
[2021-05-07] MEDS: INSULIN GLARGINE 100 UNITS/ML 10 ML VIAL SQ SCH (22:34)
[2021-05-08] VITALS (11 sets, daily range): BP systolic 104–147; BP diastolic 36–69
[2021-05-08] MEDS: FUROSEMIDE 20MG VIAL IV SCH ×2 (05:21→16:50)
[2021-05-08] MEDS: INSULIN HUMULIN R 100 UNIT/ML 3ML SQ SCH ×4 (06:32→20:04)
[2021-05-08 06:57] LABS: EOSINOPHILS % (AUTO) 1.8 % (0.0-8.0); HEMATOCRIT 33.2 % (42-54); LYMPHOCYTES % (AUTO) 14.4 % (21.0-51.0); MEAN CORPUSCULAR HEMOGLOBIN 26.4 pg (27.0-33.0); MEAN CORPUSCULAR HGB CONC 31.6 g/dL (32.0-36.0); MEAN CORPUSCULAR VOLUME 83.4 fL (79-99); MONOCYTES % (AUTO) 12.3 % (3.0-13.0); NEUTROPHILS % (AUTO) 69.2 % (40.0-77.0); PLATELET COUNT (AUTO) 630 K/uL (130-400); RED BLOOD CELL COUNT(AUTO) 3.98 MIL/uL (4.50-6.20); RED CELL DISTRIBUTION WIDTH 15.7 % (11.0-15.5); WHITE BLOOD COUNT (AUTO) 6.2 K/uL (4.8-10.8)
[2021-05-08 07:24] LABS: CREATININE 0.7 mg/dL (0.5-1.5); MAGNESIUM 1.8 mg/dL (1.80-2.40); POTASSIUM 3.6 mmol/L (3.5-5.1)
[2021-05-08] MEDS: THIAMINE HCL 100 MG TABLET PO SCH (09:00)
[2021-05-08] MEDS: FAMOTIDINE 20MG TAB PO SCH ×2 (09:00→20:03)
[2021-05-08] MEDS: ASPIRIN 81MG CHEW TAB PO SCH (09:00)
[2021-05-08] MEDS: CLOPIDOGREL 75MG TAB PO SCH (09:00)
[2021-05-08] MEDS: SENNOSIDES 8.6 MG TABLET PO SCH (09:00)
[2021-05-08] MEDS: FOLIC ACID 1 MG TABLET PO SCH (09:00)
[2021-05-08] MEDS: ENOXAPARIN SODIUM 30 MG/0.3 ML SQ SCH (09:01)
[2021-05-08] MEDS: AMIODARONE 200 MG TABLET PO SCH ×2 (09:01→20:02)
[2021-05-08] MEDS: CARVEDILOL 3.125 MG TABLET PO SCH ×2 (09:02→20:03)
[2021-05-08] MEDS: DOCUSATE SODIUM 100 MG CAP PO SCH (09:04)
[2021-05-08] MEDS: TRIAMCINOLONE ACETONIDE 0.1% CREAM 15GM TP SCH ×3 (09:04→20:05)
[2021-05-08] MEDS ORDERED: KCL 20 MEQ ERTAB PO SCH (12:30)
[2021-05-08] MEDS: MAGNESIUM 2GM PREMIX 50ML 50 ML IV SCH (12:57)
[2021-05-08] MEDS: ATORVASTATIN 40 MG TABLET PO SCH (20:02)
[2021-05-08] MEDS: INSULIN GLARGINE 100 UNITS/ML 10 ML VIAL SQ SCH (20:04)
[2021-05-09 03:15] VITALS: BP 132/74
[2021-05-09] MEDS: FUROSEMIDE 20MG VIAL IV SCH (04:51)
[2021-05-09] MEDS: INSULIN HUMULIN R 100 UNIT/ML 3ML SQ SCH ×4 (05:29→20:03)
[2021-05-09 06:41] LABS: CREATININE 0.7 mg/dL (0.5-1.5); MAGNESIUM 1.9 mg/dL (1.80-2.40); POTASSIUM 3.9 mmol/L (3.5-5.1)
[2021-05-09] MEDS: MAGNESIUM 2GM PREMIX 50ML 50 ML IV SCH (06:52)
[2021-05-09 07:45] VITALS: BP 133/56
[2021-05-09] MEDS: ENOXAPARIN SODIUM 30 MG/0.3 ML SQ SCH (08:56)
[2021-05-09] MEDS: FUROSEMIDE 20 MG TABLET PO SCH (08:56)
[2021-05-09] MEDS: CLOPIDOGREL 75MG TAB PO SCH (08:56)
[2021-05-09] MEDS: DOCUSATE SODIUM 100 MG CAP PO SCH (08:56)
[2021-05-09] MEDS: SENNOSIDES 8.6 MG TABLET PO SCH (08:57)
[2021-05-09] MEDS: THIAMINE HCL 100 MG TABLET PO SCH (08:57)
[2021-05-09] MEDS: FOLIC ACID 1 MG TABLET PO SCH (08:57)
[2021-05-09] MEDS: ASPIRIN 81MG CHEW TAB PO SCH (08:57)
[2021-05-09] MEDS: FAMOTIDINE 20MG TAB PO SCH ×2 (08:57→20:01)
[2021-05-09] MEDS: AMIODARONE 200 MG TABLET PO SCH ×2 (08:58→20:01)
[2021-05-09] MEDS: CARVEDILOL 3.125 MG TABLET PO SCH ×2 (08:58→20:02)
[2021-05-09] MEDS: TRIAMCINOLONE ACETONIDE 0.1% CREAM 15GM TP SCH ×3 (08:58→20:03)
[2021-05-09] MEDS ORDERED: LISINOPRIL 5 MG TABLET PO SCH ×2 (09:00→21:00)
[2021-05-09 12:01] VITALS: BP 102/59
[2021-05-09 16:30] VITALS: BP 115/60
[2021-05-09 19:30] VITALS: BP 152/49
[2021-05-09] MEDS: ATORVASTATIN 40 MG TABLET PO SCH (20:01)
[2021-05-09] MEDS: INSULIN GLARGINE 100 UNITS/ML 10 ML VIAL SQ SCH (20:03)
[2021-05-09 23:27] VITALS: BP 122/50
[2021-05-10 03:24] VITALS: BP 129/42
[2021-05-10] MEDS: INSULIN HUMULIN R 100 UNIT/ML 3ML SQ SCH (05:50)
[2021-05-10] MEDS ORDERED: PHARMACY COMMUNICATION MISC SCH (07:07)
[2021-05-10] MEDS: TRIAMCINOLONE ACETONIDE 0.1% CREAM 15GM TP SCH (07:36)
[2021-05-10 08:00] VITALS: BP 146/50
[2021-05-10] MEDS: AMIODARONE 200 MG TABLET PO SCH (08:49)
[2021-05-10] MEDS: CLOPIDOGREL 75MG TAB PO SCH (08:49)
[2021-05-10] MEDS: THIAMINE HCL 100 MG TABLET PO SCH (08:49)
[2021-05-10] MEDS: ASPIRIN 81MG CHEW TAB PO SCH (08:49)
[2021-05-10] MEDS: FOLIC ACID 1 MG TABLET PO SCH (08:49)
[2021-05-10] MEDS: FUROSEMIDE 20 MG TABLET PO SCH (08:49)
[2021-05-10] MEDS: FAMOTIDINE 20MG TAB PO SCH (08:49)
[2021-05-10] MEDS: ENOXAPARIN SODIUM 30 MG/0.3 ML SQ SCH (08:50)
[2021-05-10] MEDS: SENNOSIDES 8.6 MG TABLET PO SCH (08:51)
[2021-05-10] MEDS: DOCUSATE SODIUM 100 MG CAP PO SCH (08:51)
[2021-05-10] MEDS ORDERED: CARVEDILOL 3.125 MG TABLET PO SCH (09:00)
[2021-05-10 10:19] LABS: CREATININE 0.7 mg/dL (0.5-1.5); POTASSIUM 4.1 mmol/L (3.5-5.1)
[2021-05-10] MEDS ORDERED: FURO20TA6 PO (10:20)
[2021-05-10] MEDS ORDERED: CARV6.25 PO (10:20)
[2021-05-10] MEDS ORDERED: AMIO200T44 PO (10:20)
[2021-05-10] MEDS ORDERED: ASPI-1005 PO (10:20)
[2021-05-10] MEDS ORDERED: CLOP75TA14 PO (10:20)
[2021-05-10] MEDS ORDERED: ATOR40TA69 PO (10:20)
[2021-05-10] MEDS ORDERED: LISI2.5T13 PO (10:20)
[2021-05-10] MEDS ORDERED: PANT40TA55 PO (10:20)
[2021-05-10] MEDS ORDERED: TRIA15CR45 TP (10:20)
[2021-05-10] MEDS ORDERED: AMIO200T6 PO (10:20)
[2021-05-10] MEDS ORDERED: INSLAN SQ (10:30)
[2021-05-10 10:45] VITALS: BP 146/50
== END 2021-05-10 13:21 | disposition home or self-care (01) | DRG 216 ==
LOC: EDH 03:12 → EDHIP 03:13 → 2CH 19:29 → 2DH 05-06 14:07
PROVIDERS: ADMIT Internal Medicine; ATTEND Internal Medicine
PROC: 4A023N7 Measurement of Cardiac Sampling and Pressure, Left Heart, Percutaneous Approach (ICD-10-PCS; 2021-04-21)
PROC: B2111ZZ Fluoroscopy of Multiple Coronary Arteries using Low Osmolar Contrast (ICD-10-PCS; 2021-04-21)
PROC: B2151ZZ Fluoroscopy of Left Heart using Low Osmolar Contrast (ICD-10-PCS; 2021-04-21)
PROC: 5A09357 Assistance with Respiratory Ventilation, Less than 24 Consecutive Hours, Continuous Positive Airway Pressure (ICD-10-PCS; 2021-04-21)
PROC: 06BQ4ZZ Excision of Left Saphenous Vein, Percutaneous Endoscopic Approach (ICD-10-PCS; 2021-04-23)
PROC: 02HA3RJ Insertion of Short-term External Heart Assist System into Heart, Intraoperative, Percutaneous Approach (ICD-10-PCS; 2021-04-23)
PROC: 5A0221D Assistance with Cardiac Output using Impeller Pump, Continuous (ICD-10-PCS; 2021-04-23)
PROC: 02100Z9 Bypass Coronary Artery, One Artery from Left Internal Mammary, Open Approach (ICD-10-PCS; principal; 2021-04-23 11:20)
PROC: 021009W Bypass Coronary Artery, One Artery from Aorta with Autologous Venous Tissue, Open Approach (ICD-10-PCS; 2021-04-23 11:20)
PROC: 5A1945Z Respiratory Ventilation, 24-96 Consecutive Hours (ICD-10-PCS; 2021-04-26)
PROC: 0BH17EZ Insertion of Endotracheal Airway into Trachea, Via Natural or Artificial Opening (ICD-10-PCS; 2021-04-26)
PROC: 02PA3RZ Removal of Short-term External Heart Assist System from Heart, Percutaneous Approach (ICD-10-PCS; 2021-05-03)
DX: I21.4 Non-ST elevation (NSTEMI) myocardial infarction (principal); J96.01 Acute respiratory failure with hypoxia; I50.43 Acute on chronic combined systolic (congestive) and diastolic (congestive) heart failure; R57.0 Cardiogenic shock; A41.9 Sepsis, unspecified organism; J18.9 Pneumonia, unspecified organism; I16.1 Hypertensive emergency; I11.0 Hypertensive heart disease with heart failure; E11.9 Type 2 diabetes mellitus without complications; E78.00 Pure hypercholesterolemia, unspecified; E78.5 Hyperlipidemia, unspecified; I25.10 Atherosclerotic heart disease of native coronary artery without angina pectoris; E87.6 Hypokalemia; I25.5 Ischemic cardiomyopathy; I48.0 Paroxysmal atrial fibrillation; I65.22 Occlusion and stenosis of left carotid artery; J98.4 Other disorders of lung; L27.0 Generalized skin eruption due to drugs and medicaments taken internally; I25.2 Old myocardial infarction; Z79.02 Long term (current) use of antithrombotics/antiplatelets; Z79.4 Long term (current) use of insulin; Z79.82 Long term (current) use of aspirin; Z79.899 Other long term (current) drug therapy; Z87.891 Personal history of nicotine dependence; Z82.49 Family history of ischemic heart disease and other diseases of the circulatory system
CPT/HCPCS: 33990; 36415; 36600; 71045; 74018; 80048; 80053; 80061; 80202; 80305; 81001; 82140; 82330; 82435; 82803; 82947; 82948; 83036; 83605; 83615; 83735; 83880; 84100; 84132; 84145; 84295; 84484; 85018; 85025; 85027; 85347; 85384; 85610; 85730; 86850; 86900; 86901; 86923; 87040; 87071; 87088; 87205; 87635; 93005; 93306; 93308; 93356; 93458; 93880; 93970; 94002; 94003; 94640; 94660; 94664; 97039; 99156; 99157; 99291; A4344; A7048; C1751; C1894; G0378; J0171; J0282; J0330; J0456; J0461; J0583; J0610; J0690; J0696; J0713; J1100; J1265; J1644; J1650; J1815; J1940; J1956; J2001; J2060; J2250; J2370; J2405; J2543; J2704; J2710; J2720; J3010; J3370; J3411; J3475; J3480; J3490; J7030; J7040; J7050; J7060; J7120; P9045; Q0163; Q9967

== ENCOUNTER 2021-09-15 14:32 | Inpatient (IN) | payer OTHER, SELFPAY ==
[~2021-09-15] VITALS: Ht 165.1 cm; Wt 86.2 kg
[~2021-09-15 14:32] MED LIST: AMIO200T44 PO; AMIO200T68 PO; ASPI-1005 PO; ATOR40TA69 PO; CARV6.25 PO; CLOP75TA14 PO; FURO20TA6 PO; INSLAN SQ; LISI2.5T13 PO; PANT40TA55 PO; SITA100T12 PO; TRIA15CR45 TP
[2021-09-15 16:21] LABS: BASOPHILS % (AUTO) 0.5 % (0.0-5.0); EOSINOPHILS % (AUTO) 1.6 % (0.0-8.0); HEMATOCRIT 43.7 % (42-54); LYMPHOCYTES % (AUTO) 20.5 % (21.0-51.0); MEAN CORPUSCULAR HEMOGLOBIN 25.5 pg (27.0-33.0); MEAN CORPUSCULAR HGB CONC 31.1 g/dL (32.0-36.0); MEAN CORPUSCULAR VOLUME 81.8 fL (79-99); NEUTROPHILS % (AUTO) 67.6 % (40.0-77.0); PLATELET COUNT (AUTO) 349 K/uL (130-400); RED BLOOD CELL COUNT(AUTO) 5.34 MIL/uL (4.50-6.20); RED CELL DISTRIBUTION WIDTH 15.6 % (11.0-15.5); WHITE BLOOD COUNT (AUTO) 7.7 K/uL (4.8-10.8)
[2021-09-15 16:56] LABS: ALBUMIN 3.5 g/dL (3.5-5.0); BILIRUBIN,TOTAL 0.3 mg/dL (0.2-1.0); POTASSIUM 4.5 mmol/L (3.5-5.1); TOTAL PROTEIN, SERUM 7.6 g/dL (6.0-8.3)
[2021-09-15] MEDS ORDERED: VANCOMYCIN PROTOCOL PER PHARMACY IV SCH (17:00)
[2021-09-15] MEDS ORDERED: KCL10IV IV (17:11)
[2021-09-15] MEDS ORDERED: INSLAN SQ (17:11)
[2021-09-15] MEDS: CEFEPIME HCL 2 GM VIAL IVP SCH (17:48)
[2021-09-15] MEDS: METRONIDAZOLE 500 MG TABLET PO SCH (17:48)
[2021-09-15 17:50] LABS: CRP QUANTITATIVE 12.2 mg/L (0.00-9.0); THYROID STIMULATING HORMONE 1.74 uIU/mL (0.36-3.74)
[2021-09-15] MEDS ORDERED: COMPOUND IV REFRIGERATED 1 EACH IVSOLN MISC PRN (18:00)
[2021-09-15] MEDS: VANCOMYCIN 1.25GM/NS 250ML IVPB SCH ×2 (20:03)
[2021-09-15] MEDS: ATORVASTATIN 40 MG TABLET PO SCH (20:44)
[2021-09-15] MEDS: INSULIN HUMULIN R 100 UNIT/ML 3ML SQ SCH (20:45)
[2021-09-16] MEDS: METRONIDAZOLE 500 MG TABLET PO SCH ×3 (00:08→17:01)
[2021-09-16] MEDS: CEFEPIME HCL 2 GM VIAL IVP SCH ×2 (04:51→17:01)
[2021-09-16 06:28] LABS: BASOPHILS % (AUTO) 0.9 % (0.0-5.0); EOSINOPHILS % (AUTO) 2.7 % (0.0-8.0); HEMATOCRIT 43.3 % (42-54); MEAN CORPUSCULAR HGB CONC 31.4 g/dL (32.0-36.0); MEAN CORPUSCULAR VOLUME 82.6 fL (79-99); MONOCYTES % (AUTO) 10.9 % (3.0-13.0); NEUTROPHILS % (AUTO) 65.8 % (40.0-77.0); PLATELET COUNT (AUTO) 322 K/uL (130-400); RED BLOOD CELL COUNT(AUTO) 5.24 MIL/uL (4.50-6.20); RED CELL DISTRIBUTION WIDTH 15.9 % (11.0-15.5); WHITE BLOOD COUNT (AUTO) 6.7 K/uL (4.8-10.8)
[2021-09-16 06:43] LABS: ALBUMIN 3.2 g/dL (3.5-5.0); BILIRUBIN,TOTAL 0.4 mg/dL (0.2-1.0); CREATININE 0.8 mg/dL (0.5-1.5); POTASSIUM 4.1 mmol/L (3.5-5.1); TOTAL PROTEIN, SERUM 7.1 g/dL (6.0-8.3)
[2021-09-16] MEDS: INSULIN HUMULIN R 100 UNIT/ML 3ML SQ SCH ×4 (07:30→21:00)
[2021-09-16 07:39] LABS: CHOLESTEROL 124 mg/dL (<200); HDL CHOLESTEROL 47 mg/dL (29-71); LDL DIRECT 69 mg/dL (0-99); TRIGLYCERIDES 49 mg/dL (30-200)
[2021-09-16] MEDS: NEOMY SULF/BACITRA/POLYMYXIN B 1 EACH PACKET TP SCH (08:00)
[2021-09-16] MEDS ORDERED: INSULIN GLARGINE 100 UNITS/ML 10 ML VIAL SQ ONE (09:00)
[2021-09-16] MEDS ORDERED: KCL 20 MEQ ERTAB PO ONE (10:04)
[2021-09-16] MEDS ORDERED: VANCOMYCIN 1G/250ML KIT 250 ML IV ONE (10:04)
[2021-09-16] MEDS: FUROSEMIDE 20 MG TABLET PO SCH (10:19)
[2021-09-16] MEDS: AMIODARONE 200 MG TABLET PO SCH (10:19)
[2021-09-16] MEDS: CLOPIDOGREL 75MG TAB PO SCH (10:19)
[2021-09-16] MEDS: ASPIRIN 81 MG EC TAB PO SCH (10:19)
[2021-09-16] MEDS: VANCOMYCIN 1.25GM/NS 250ML IVPB SCH ×4 (10:19→21:00)
[2021-09-16] MEDS: POTASSIUM CHLORIDE 10MEQ SR TAB PO SCH (10:19)
[2021-09-16] MEDS: PANTOPRAZOLE 40 MG TAB DR PO SCH (10:20)
[2021-09-16] MEDS: LINAGLIPTIN 5 MG TABLET PO SCH (10:20)
[2021-09-16] MEDS ORDERED: HEPARIN 10,000 UNIT/10ML (1,000 UNIT/ML) VIAL ONE (11:34)
[2021-09-16] MEDS ORDERED: LIDOCAINE HCL 400MG/20ML VIAL ONE (11:35)
[2021-09-16] MEDS ORDERED: FENTANYL CITRATE PF 50 MCG/1 ML 2ML VIAL ONE (11:35)
[2021-09-16] MEDS ORDERED: IODIXANOL 320 MG/ML 100 ML VIAL ONE (11:35)
[2021-09-16] MEDS ORDERED: MIDAZOLAM HCL 1 MG/ML 2ML VIAL ONE (11:35)
[2021-09-16 13:45] VITALS: BP 133/48
[2021-09-16 14:00] VITALS: BP 131/48
[2021-09-16 14:15] VITALS: BP 130/51
[2021-09-16 18:43] LABS: INR 1.03 (0.85-1.15); PROTHROMBIN TIME 11.2 SEC (9.6-11.6)
[2021-09-16 19:00] VITALS: BP 131/47
[2021-09-16] MEDS: ATORVASTATIN 40 MG TABLET PO SCH (21:00)
[2021-09-16 23:30] VITALS: BP 128/44
[2021-09-17] MEDS: METRONIDAZOLE 500 MG TABLET PO SCH ×3 (01:00→16:49)
[2021-09-17 01:10] LABS: HEMATOCRIT 41.4 % (42-54); MEAN CORPUSCULAR HEMOGLOBIN 26.1 pg (27.0-33.0); MEAN CORPUSCULAR HGB CONC 32.9 g/dL (32.0-36.0); MEAN CORPUSCULAR VOLUME 79.3 fL (79-99); RED BLOOD CELL COUNT(AUTO) 5.22 MIL/uL (4.50-6.20); RED CELL DISTRIBUTION WIDTH 15.9 % (11.0-15.5); WHITE BLOOD COUNT (AUTO) 7.5 K/uL (4.8-10.8)
[2021-09-17 01:26] LABS: CREATININE 0.7 mg/dL (0.5-1.5); POTASSIUM 3.9 mmol/L (3.5-5.1)
[2021-09-17] MEDS ORDERED: HYDROCODONE/ACETAMINOPHEN 5/325 MG TAB PO ONE (04:30)
[2021-09-17] MEDS: CEFEPIME HCL 2 GM VIAL IVP SCH ×2 (04:38→16:52)
[2021-09-17 05:28] VITALS: BP 126/41
[2021-09-17] MEDS: INSULIN HUMULIN R 100 UNIT/ML 3ML SQ SCH ×4 (06:15→20:16)
[2021-09-17 08:07] VITALS: BP 147/33
[2021-09-17] MEDS: FUROSEMIDE 20 MG TABLET PO SCH (08:59)
[2021-09-17] MEDS: NEOMY SULF/BACITRA/POLYMYXIN B 1 EACH PACKET TP SCH (08:59)
[2021-09-17] MEDS: ASPIRIN 81 MG EC TAB PO SCH (09:00)
[2021-09-17] MEDS: POTASSIUM CHLORIDE 10MEQ SR TAB PO SCH (09:00)
[2021-09-17] MEDS: AMIODARONE 200 MG TABLET PO SCH (09:00)
[2021-09-17] MEDS: CLOPIDOGREL 75MG TAB PO SCH (09:00)
[2021-09-17] MEDS: LINAGLIPTIN 5 MG TABLET PO SCH (09:00)
[2021-09-17] MEDS: PANTOPRAZOLE 40 MG TAB DR PO SCH (09:00)
[2021-09-17] MEDS: VANCOMYCIN 1.25GM/NS 250ML IVPB SCH ×4 (09:05→20:12)
[2021-09-17] MEDS ORDERED: IOHEXOL 350 MG/ML 100ML INFUS..BTL IV ONE (11:26)
[2021-09-17] MEDS ORDERED: IOHEXOL-350 50ML VIAL IV ONE (11:26)
[2021-09-17 11:57] VITALS: BP 140/33
[2021-09-17 15:00] VITALS: BP 154/68
[2021-09-17] MEDS: ATORVASTATIN 40 MG TABLET PO SCH (20:12)
[2021-09-17 20:19] VITALS: BP 143/57
[2021-09-17] MEDS: HEPARIN 25,000 UNITS/250ML D5W 250 ML IV SCH (20:25)
[2021-09-17] MEDS ORDERED: HYDROCODONE/ACETAMINOPHEN 5/325 MG TAB ONE (23:33)
[2021-09-18] MEDS ORDERED: HYDROCODONE/ACETAMINOPHEN 5/325 MG TAB PO ONE
[2021-09-18 00:21] VITALS: BP 156/54
[2021-09-18] MEDS: METRONIDAZOLE 500 MG TABLET PO SCH ×3 (00:29→16:31)
[2021-09-18] MEDS ORDERED: HYDROMORPHONE 0.5 MG SYG (0.5MG/0.5ML) ONE (00:51)
[2021-09-18] MEDS ORDERED: HYDROMORPHONE 0.5 MG SYG (0.5MG/0.5ML) IVP ONE (01:00)
[2021-09-18 02:46] LABS: HEMATOCRIT 39.4 % (42-54); MEAN CORPUSCULAR HEMOGLOBIN 25.9 pg (27.0-33.0); MEAN CORPUSCULAR VOLUME 80.9 fL (79-99); RED BLOOD CELL COUNT(AUTO) 4.87 MIL/uL (4.50-6.20); RED CELL DISTRIBUTION WIDTH 15.8 % (11.0-15.5); WHITE BLOOD COUNT (AUTO) 6.2 K/uL (4.8-10.8)
[2021-09-18 02:58] LABS: ALBUMIN 2.8 g/dL (3.5-5.0); CREATININE 0.9 mg/dL (0.5-1.5)
[2021-09-18] MEDS: HEPARIN 25,000 UNITS/250ML D5W 250 ML IV SCH ×2 (03:19→15:26)
[2021-09-18] MEDS: CEFEPIME HCL 2 GM VIAL IVP SCH ×2 (04:12→16:31)
[2021-09-18 04:15] VITALS: BP 132/53
[2021-09-18] MEDS: INSULIN HUMULIN R 100 UNIT/ML 3ML SQ SCH ×4 (06:10→21:08)
[2021-09-18 07:41] VITALS: BP 137/45
[2021-09-18] MEDS: ASPIRIN 81 MG EC TAB PO SCH (07:55)
[2021-09-18] MEDS: CLOPIDOGREL 75MG TAB PO SCH (07:55)
[2021-09-18] MEDS: LINAGLIPTIN 5 MG TABLET PO SCH (07:56)
[2021-09-18] MEDS: FUROSEMIDE 20 MG TABLET PO SCH (07:56)
[2021-09-18] MEDS: NEOMY SULF/BACITRA/POLYMYXIN B 1 EACH PACKET TP SCH (07:56)
[2021-09-18] MEDS: PANTOPRAZOLE 40 MG TAB DR PO SCH (07:56)
[2021-09-18] MEDS: POTASSIUM CHLORIDE 10MEQ SR TAB PO SCH (07:56)
[2021-09-18] MEDS: AMIODARONE 200 MG TABLET PO SCH (07:56)
[2021-09-18] MEDS: VANCOMYCIN 1.25GM/NS 250ML IVPB SCH ×4 (09:36→21:07)
[2021-09-18 11:00] VITALS: BP 140/71
[2021-09-18] MEDS ORDERED: MORPHINE 2 MG SYG IVP SCH (12:00)
[2021-09-18] MEDS ORDERED: KETOROLAC 15MG/ML VIAL (15MG/ML) IV PRN (14:30)
[2021-09-18] MEDS: HYDROMORPHONE 0.5 MG SYG (0.5MG/0.5ML) IVP PRN ×2 (15:21→23:52)
[2021-09-18] MEDS: LISINOPRIL 2.5 MG TABLET PO SCH (18:16)
[2021-09-18 20:13] VITALS: BP 145/70
[2021-09-18] MEDS: CARVEDILOL 6.25 MG TABLET PO SCH (21:06)
[2021-09-18] MEDS: ATORVASTATIN 40 MG TABLET PO SCH (21:06)
[2021-09-18 23:39] VITALS: BP 152/58
[2021-09-19] MEDS: METRONIDAZOLE 500 MG TABLET PO SCH ×3 (00:11→17:56)
[2021-09-19 03:55] VITALS: BP 132/47
[2021-09-19 05:32] LABS: EOSINOPHILS % (AUTO) 3.2 % (0.0-8.0); HEMATOCRIT 40.4 % (42-54); MEAN CORPUSCULAR HEMOGLOBIN 25.6 pg (27.0-33.0); MEAN CORPUSCULAR HGB CONC 31.2 g/dL (32.0-36.0); MEAN CORPUSCULAR VOLUME 81.9 fL (79-99); MONOCYTES % (AUTO) 10.6 % (3.0-13.0); NEUTROPHILS % (AUTO) 64.9 % (40.0-77.0); PLATELET COUNT (AUTO) 261 K/uL (130-400); RED BLOOD CELL COUNT(AUTO) 4.93 MIL/uL (4.50-6.20); RED CELL DISTRIBUTION WIDTH 15.8 % (11.0-15.5); WHITE BLOOD COUNT (AUTO) 5.9 K/uL (4.8-10.8)
[2021-09-19 05:52] LABS: ALBUMIN 2.9 g/dL (3.5-5.0); CREATININE 0.8 mg/dL (0.5-1.5); POTASSIUM 3.9 mmol/L (3.5-5.1)
[2021-09-19] MEDS: CEFEPIME HCL 2 GM VIAL IVP SCH ×2 (06:08→17:56)
[2021-09-19] MEDS: INSULIN HUMULIN R 100 UNIT/ML 3ML SQ SCH ×4 (06:39→20:28)
[2021-09-19 07:30] VITALS: BP 130/45
[2021-09-19] MEDS: NEOMY SULF/BACITRA/POLYMYXIN B 1 EACH PACKET TP SCH (08:00)
[2021-09-19] MEDS: POTASSIUM CHLORIDE 10MEQ SR TAB PO SCH (08:50)
[2021-09-19] MEDS: LINAGLIPTIN 5 MG TABLET PO SCH (08:50)
[2021-09-19] MEDS: ASPIRIN 81 MG EC TAB PO SCH (08:52)
[2021-09-19] MEDS: AMIODARONE 200 MG TABLET PO SCH (08:52)
[2021-09-19] MEDS: CLOPIDOGREL 75MG TAB PO SCH (08:53)
[2021-09-19] MEDS: TRAMADOL HCL 50 MG TABLET PO PRN ×3 (08:53→20:30)
[2021-09-19] MEDS: PANTOPRAZOLE 40 MG TAB DR PO SCH (08:54)
[2021-09-19] MEDS: FUROSEMIDE 20 MG TABLET PO SCH (08:54)
[2021-09-19] MEDS: LISINOPRIL 2.5 MG TABLET PO SCH (08:54)
[2021-09-19] MEDS: CARVEDILOL 6.25 MG TABLET PO SCH ×3 (09:00→20:27)
[2021-09-19] MEDS: VANCOMYCIN 1.25GM/NS 250ML IVPB SCH ×4 (09:05→20:27)
[2021-09-19 11:00] VITALS: BP 158/70
[2021-09-19] MEDS: HEPARIN 25,000 UNITS/250ML D5W 250 ML IV SCH (13:39)
[2021-09-19 16:00] VITALS: BP 146/59
[2021-09-19 20:01] VITALS: BP 153/70
[2021-09-19] MEDS: ATORVASTATIN 40 MG TABLET PO SCH (20:27)
[2021-09-19 23:41] VITALS: BP 143/58
[2021-09-20] MEDS: METRONIDAZOLE 500 MG TABLET PO SCH ×4 (01:05→23:39)
[2021-09-20] MEDS: HYDROMORPHONE 0.5 MG SYG (0.5MG/0.5ML) IVP PRN ×2 (01:06→21:34)
[2021-09-20 04:16] VITALS: BP 145/56
[2021-09-20] MEDS: CEFEPIME HCL 2 GM VIAL IVP SCH ×2 (04:54→16:22)
[2021-09-20] MEDS: INSULIN HUMULIN R 100 UNIT/ML 3ML SQ SCH ×4 (06:10→21:40)
[2021-09-20 07:30] VITALS: BP 136/47
[2021-09-20] MEDS: NEOMY SULF/BACITRA/POLYMYXIN B 1 EACH PACKET TP SCH (07:55)
[2021-09-20] MEDS: ASPIRIN 81 MG EC TAB PO SCH (07:56)
[2021-09-20] MEDS: VANCOMYCIN 1.25GM/NS 250ML IVPB SCH ×2 (07:56)
[2021-09-20] MEDS: FUROSEMIDE 20 MG TABLET PO SCH (07:56)
[2021-09-20] MEDS: AMIODARONE 200 MG TABLET PO SCH (07:56)
[2021-09-20] MEDS: LINAGLIPTIN 5 MG TABLET PO SCH (07:56)
[2021-09-20] MEDS: POTASSIUM CHLORIDE 10MEQ SR TAB PO SCH (07:57)
[2021-09-20] MEDS: PANTOPRAZOLE 40 MG TAB DR PO SCH (07:57)
[2021-09-20] MEDS: CLOPIDOGREL 75MG TAB PO SCH (07:57)
[2021-09-20] MEDS: LISINOPRIL 2.5 MG TABLET PO SCH (07:57)
[2021-09-20] MEDS: CARVEDILOL 6.25 MG TABLET PO SCH ×2 (07:58→21:33)
[2021-09-20 09:08] LABS: HEMATOCRIT 40.9 % (42-54); MEAN CORPUSCULAR HEMOGLOBIN 26.2 pg (27.0-33.0); MEAN CORPUSCULAR VOLUME 81.8 fL (79-99); RED CELL DISTRIBUTION WIDTH 15.9 % (11.0-15.5); WHITE BLOOD COUNT (AUTO) 6.9 K/uL (4.8-10.8)
[2021-09-20 09:14] LABS: CREATININE 0.7 mg/dL (0.5-1.5); POTASSIUM 4.1 mmol/L (3.5-5.1)
[2021-09-20 09:15] LABS: INR 1.06 (0.85-1.15); PROTHROMBIN TIME 11.5 SEC (9.6-11.6)
[2021-09-20 09:16] LABS: PARTIAL THROMBOPLASTIN TIME 58.6 SEC (26.3-35.5)
[2021-09-20 11:00] VITALS: BP 133/36
[2021-09-20] MEDS: HEPARIN 25,000 UNITS/250ML D5W 250 ML IV SCH (12:51)
[2021-09-20] MEDS: TRAMADOL HCL 50 MG TABLET PO PRN ×2 (13:00→18:41)
[2021-09-20 15:20] VITALS: BP 144/53
[2021-09-20 20:00] VITALS: BP 165/67
[2021-09-20] MEDS: ATORVASTATIN 40 MG TABLET PO SCH (21:33)
[2021-09-20] MEDS: VANCOMYCIN 1G/250ML KIT 250 ML IV SCH (21:33)
[2021-09-21] VITALS (15 sets, daily range): BP systolic 125–177; BP diastolic 36–82
[2021-09-21] MEDS: CEFEPIME HCL 2 GM VIAL IVP SCH ×2 (05:46→17:14)
[2021-09-21] MEDS: INSULIN HUMULIN R 100 UNIT/ML 3ML SQ SCH ×4 (07:30→21:00)
[2021-09-21] MEDS: NEOMY SULF/BACITRA/POLYMYXIN B 1 EACH PACKET TP SCH (08:16)
[2021-09-21] MEDS: ASPIRIN 81 MG EC TAB PO SCH (08:17)
[2021-09-21] MEDS: VANCOMYCIN 1G/250ML KIT 250 ML IV SCH ×2 (08:17→21:06)
[2021-09-21] MEDS: AMIODARONE 200 MG TABLET PO SCH (08:18)
[2021-09-21] MEDS: POTASSIUM CHLORIDE 10MEQ SR TAB PO SCH (08:18)
[2021-09-21] MEDS: LISINOPRIL 2.5 MG TABLET PO SCH (08:19)
[2021-09-21] MEDS: PANTOPRAZOLE 40 MG TAB DR PO SCH (08:19)
[2021-09-21] MEDS: FUROSEMIDE 20 MG TABLET PO SCH (08:19)
[2021-09-21] MEDS: CLOPIDOGREL 75MG TAB PO SCH (08:19)
[2021-09-21] MEDS: CARVEDILOL 6.25 MG TABLET PO SCH ×2 (08:20→21:07)
[2021-09-21] MEDS: METRONIDAZOLE 500 MG TABLET PO SCH ×2 (08:20→17:14)
[2021-09-21] MEDS: LINAGLIPTIN 5 MG TABLET PO SCH (08:20)
[2021-09-21] MEDS: TRAMADOL HCL 50 MG TABLET PO PRN (09:37)
[2021-09-21] MEDS ORDERED: MIDAZOLAM HCL 1 MG/ML 2ML VIAL ONE (10:45)
[2021-09-21] MEDS ORDERED: LIDOCAINE HCL 400MG/20ML VIAL ONE (10:45)
[2021-09-21] MEDS ORDERED: HEPARIN 10,000 UNIT/10ML (1,000 UNIT/ML) VIAL ONE (10:45)
[2021-09-21] MEDS ORDERED: FENTANYL CITRATE PF 50 MCG/1 ML 2ML VIAL ONE (10:45)
[2021-09-21] MEDS ORDERED: IODIXANOL 320 MG/ML 100 ML VIAL ONE (10:45)
[2021-09-21] MEDS ORDERED: PROTAMINE SULFATE 10 MG/ML 25ML VIAL IV ONE (12:01)
[2021-09-21] MEDS ORDERED: 0.9%NACL 1000ML 1,000 ML IV SCH (12:30)
[2021-09-21] MEDS: ATORVASTATIN 40 MG TABLET PO SCH (21:06)
[2021-09-22] MEDS ORDERED: HEPARIN 5,000 UNIT VIAL ONE (00:12)
[2021-09-22] MEDS: HEPARIN 25,000 UNITS/250ML D5W 250 ML IV SCH ×2 (00:19→18:01)
[2021-09-22] MEDS: METRONIDAZOLE 500 MG TABLET PO SCH ×3 (00:22→17:50)
[2021-09-22 04:15] VITALS: BP 140/81
[2021-09-22] MEDS: CEFEPIME HCL 2 GM VIAL IVP SCH ×2 (05:44→17:50)
[2021-09-22] MEDS: INSULIN HUMULIN R 100 UNIT/ML 3ML SQ SCH ×4 (05:46→20:15)
[2021-09-22 07:52] VITALS: BP 140/62
[2021-09-22 07:53] LABS: BASOPHILS % (AUTO) 0.7 % (0.0-5.0); EOSINOPHILS % (AUTO) 2.5 % (0.0-8.0); HEMATOCRIT 40.7 % (42-54); LYMPHOCYTES % (AUTO) 14.1 % (21.0-51.0); MEAN CORPUSCULAR HEMOGLOBIN 26.2 pg (27.0-33.0); MEAN CORPUSCULAR HGB CONC 32.2 g/dL (32.0-36.0); MEAN CORPUSCULAR VOLUME 81.4 fL (79-99); MONOCYTES % (AUTO) 8.8 % (3.0-13.0); NEUTROPHILS % (AUTO) 73.5 % (40.0-77.0); PLATELET COUNT (AUTO) 240 K/uL (130-400); RED CELL DISTRIBUTION WIDTH 15.9 % (11.0-15.5); WHITE BLOOD COUNT (AUTO) 6.7 K/uL (4.8-10.8)
[2021-09-22] MEDS: NEOMY SULF/BACITRA/POLYMYXIN B 1 EACH PACKET TP SCH (08:00)
[2021-09-22 08:22] LABS: BILIRUBIN,TOTAL 0.5 mg/dL (0.2-1.0); CREATININE 0.7 mg/dL (0.5-1.5); POTASSIUM 3.7 mmol/L (3.5-5.1); TOTAL PROTEIN, SERUM 6.7 g/dL (6.0-8.3)
[2021-09-22 11:14] VITALS: BP 129/58
[2021-09-22] MEDS: VANCOMYCIN 1G/250ML KIT 250 ML IV SCH ×2 (11:22→20:20)
[2021-09-22] MEDS: LISINOPRIL 2.5 MG TABLET PO SCH (11:23)
[2021-09-22] MEDS: AMIODARONE 200 MG TABLET PO SCH (11:23)
[2021-09-22] MEDS: ASPIRIN 81 MG EC TAB PO SCH (11:23)
[2021-09-22] MEDS: PANTOPRAZOLE 40 MG TAB DR PO SCH (11:24)
[2021-09-22] MEDS: FUROSEMIDE 20 MG TABLET PO SCH (11:24)
[2021-09-22] MEDS: POTASSIUM CHLORIDE 10MEQ SR TAB PO SCH (11:24)
[2021-09-22] MEDS: LINAGLIPTIN 5 MG TABLET PO SCH (11:24)
[2021-09-22] MEDS: CARVEDILOL 6.25 MG TABLET PO SCH ×2 (11:25→20:20)
[2021-09-22] MEDS: CLOPIDOGREL 75MG TAB PO SCH (11:25)
[2021-09-22] MEDS: TRAMADOL HCL 50 MG TABLET PO PRN (11:26)
[2021-09-22 14:17] LABS: INR 1.14 (0.85-1.15); PROTHROMBIN TIME 12.3 SEC (9.6-11.6)
[2021-09-22 14:18] LABS: PARTIAL THROMBOPLASTIN TIME 74.4 SEC (26.3-35.5)
[2021-09-22 16:02] VITALS: BP 149/69
[2021-09-22 19:59] VITALS: BP 149/77
[2021-09-22 20:13] LABS: INR 1.07 (0.85-1.15); PROTHROMBIN TIME 11.6 SEC (9.6-11.6)
[2021-09-22 20:14] LABS: PARTIAL THROMBOPLASTIN TIME 61.4 SEC (26.3-35.5)
[2021-09-22] MEDS: ATORVASTATIN 40 MG TABLET PO SCH (20:20)
[2021-09-22 23:37] VITALS: BP 119/92
[2021-09-23] MEDS: METRONIDAZOLE 500 MG TABLET PO SCH ×3 (01:13→16:46)
[2021-09-23 03:40] VITALS: BP 129/49
[2021-09-23] MEDS: CEFEPIME HCL 2 GM VIAL IVP SCH ×2 (04:31→16:46)
[2021-09-23 05:14] LABS: BASOPHILS % (AUTO) 0.5 % (0.0-5.0); EOSINOPHILS % (AUTO) 2.7 % (0.0-8.0); HEMATOCRIT 35.3 % (42-54); LYMPHOCYTES % (AUTO) 18.9 % (21.0-51.0); MEAN CORPUSCULAR HEMOGLOBIN 26.4 pg (27.0-33.0); MEAN CORPUSCULAR HGB CONC 32.9 g/dL (32.0-36.0); MEAN CORPUSCULAR VOLUME 80.2 fL (79-99); MONOCYTES % (AUTO) 10.2 % (3.0-13.0); NEUTROPHILS % (AUTO) 66.8 % (40.0-77.0); PLATELET COUNT (AUTO) 231 K/uL (130-400); RED CELL DISTRIBUTION WIDTH 15.9 % (11.0-15.5); WHITE BLOOD COUNT (AUTO) 7.5 K/uL (4.8-10.8)
[2021-09-23 05:46] LABS: ALBUMIN 2.8 g/dL (3.5-5.0); BILIRUBIN,TOTAL 0.3 mg/dL (0.2-1.0); CREATININE 0.8 mg/dL (0.5-1.5); POTASSIUM 3.6 mmol/L (3.5-5.1); TOTAL PROTEIN, SERUM 6.2 g/dL (6.0-8.3)
[2021-09-23] MEDS: INSULIN HUMULIN R 100 UNIT/ML 3ML SQ SCH ×4 (06:00→20:32)
[2021-09-23 08:08] VITALS: BP 138/59
[2021-09-23 08:18] LABS: APPEARANCE,URINE CLEAR (CLEAR); BILIRUBIN,URINE NEGATIVE (NEGATIVE); COLOR,URINE YELLOW (YELLOW); GLUCOSE, URINE (UA) NEGATIVE (NEGATIVE); KETONES,URINE NEGATIVE (NEGATIVE); LEUKOCYTE ESTERASE ,URINE TRACE (NEGATIVE); NITRATE,URINE NEGATIVE (NEGATIVE); OCCULT BLOOD,URINE NEGATIVE (NEGATIVE); PROTEIN,URINE NEGATIVE (NEGATIVE); UROBILINOGEN,URINE 0.2 mg/dL (0.2-1.0)
[2021-09-23 08:23] LABS: BACTERIA,URINE Rare /HPF (None Seen); RBC,URINE 0-1 /HPF (0-1); SQUAMOUS EPITHELIAL CELL,UR Rare /HPF (0-2); WBC,URINE 0-1 /HPF (0-1)
[2021-09-23] MEDS: POTASSIUM CHLORIDE 10MEQ SR TAB PO SCH (08:24)
[2021-09-23] MEDS: AMIODARONE 200 MG TABLET PO SCH (08:24)
[2021-09-23] MEDS: PANTOPRAZOLE 40 MG TAB DR PO SCH (08:24)
[2021-09-23] MEDS: VANCOMYCIN 1G/250ML KIT 250 ML IV SCH ×2 (08:25→20:31)
[2021-09-23] MEDS: CLOPIDOGREL 75MG TAB PO SCH (08:25)
[2021-09-23] MEDS: FUROSEMIDE 20 MG TABLET PO SCH (08:26)
[2021-09-23] MEDS: ASPIRIN 81 MG EC TAB PO SCH (08:26)
[2021-09-23] MEDS: LISINOPRIL 2.5 MG TABLET PO SCH (08:26)
[2021-09-23] MEDS: LINAGLIPTIN 5 MG TABLET PO SCH (08:26)
[2021-09-23] MEDS: CARVEDILOL 6.25 MG TABLET PO SCH ×2 (08:27→20:31)
[2021-09-23 10:35] LABS: INR 1.13 (0.85-1.15); PROTHROMBIN TIME 12.2 SEC (9.6-11.6)
[2021-09-23 11:29] VITALS: BP 138/57
[2021-09-23] MEDS ORDERED: WARFARIN SODIUM 5 MG TAB PO SCH (12:00)
[2021-09-23 16:27] VITALS: BP 146/71
[2021-09-23] MEDS: HEPARIN 25,000 UNITS/250ML D5W 250 ML IV SCH (16:53)
[2021-09-23 19:09] VITALS: BP 148/56
[2021-09-23] MEDS: ATORVASTATIN 40 MG TABLET PO SCH (20:30)
[2021-09-23 23:54] VITALS: BP 141/76
[2021-09-24] MEDS: METRONIDAZOLE 500 MG TABLET PO SCH ×2 (00:29→08:09)
[2021-09-24 04:29] VITALS: BP 146/46
[2021-09-24] MEDS: CEFEPIME HCL 2 GM VIAL IVP SCH (05:03)
[2021-09-24 05:39] LABS: BASOPHILS % (AUTO) 0.7 % (0.0-5.0); EOSINOPHILS % (AUTO) 2.8 % (0.0-8.0); HEMATOCRIT 38.1 % (42-54); LYMPHOCYTES % (AUTO) 17.3 % (21.0-51.0); MEAN CORPUSCULAR HEMOGLOBIN 26.3 pg (27.0-33.0); MEAN CORPUSCULAR HGB CONC 32.3 g/dL (32.0-36.0); MEAN CORPUSCULAR VOLUME 81.4 fL (79-99); MONOCYTES % (AUTO) 10.6 % (3.0-13.0); NEUTROPHILS % (AUTO) 67.8 % (40.0-77.0); PLATELET COUNT (AUTO) 240 K/uL (130-400); RED BLOOD CELL COUNT(AUTO) 4.68 MIL/uL (4.50-6.20); RED CELL DISTRIBUTION WIDTH 16.2 % (11.0-15.5); WHITE BLOOD COUNT (AUTO) 7.4 K/uL (4.8-10.8)
[2021-09-24 05:43] LABS: CREATININE 0.8 mg/dL (0.5-1.5); POTASSIUM 3.6 mmol/L (3.5-5.1)
[2021-09-24 05:48] LABS: INR 1.09 (0.85-1.15); PROTHROMBIN TIME 11.8 SEC (9.6-11.6)
[2021-09-24 05:49] LABS: PARTIAL THROMBOPLASTIN TIME 47.4 SEC (26.3-35.5)
[2021-09-24] MEDS: INSULIN HUMULIN R 100 UNIT/ML 3ML SQ SCH ×4 (06:17→20:13)
[2021-09-24] MEDS ORDERED: WARFARIN SODIUM 10 MG TABLET PO SCH (07:30)
[2021-09-24 08:00] VITALS: BP 139/75
[2021-09-24] MEDS: LISINOPRIL 2.5 MG TABLET PO SCH (08:09)
[2021-09-24] MEDS: LINAGLIPTIN 5 MG TABLET PO SCH (08:09)
[2021-09-24] MEDS: AMIODARONE 200 MG TABLET PO SCH (08:09)
[2021-09-24] MEDS: PANTOPRAZOLE 40 MG TAB DR PO SCH (08:09)
[2021-09-24] MEDS: FUROSEMIDE 20 MG TABLET PO SCH (08:09)
[2021-09-24] MEDS: CLOPIDOGREL 75MG TAB PO SCH (08:09)
[2021-09-24] MEDS: POTASSIUM CHLORIDE 10MEQ SR TAB PO SCH (08:10)
[2021-09-24] MEDS: VANCOMYCIN 1G/250ML KIT 250 ML IV SCH (08:11)
[2021-09-24] MEDS: CARVEDILOL 6.25 MG TABLET PO SCH ×2 (08:18→19:52)
[2021-09-24 12:00] VITALS: BP 137/61
[2021-09-24 16:00] VITALS: BP 136/68
[2021-09-24] MEDS: HEPARIN 25,000 UNITS/250ML D5W 250 ML IV SCH (16:10)
[2021-09-24] MEDS: ACETAMINOPHEN 325 MG TAB PO PRN ×2 (16:59→21:13)
[2021-09-24] MEDS: ATORVASTATIN 40 MG TABLET PO SCH (19:51)
[2021-09-24 19:54] VITALS: BP 158/65
[2021-09-24 23:28] VITALS: BP 137/68
[2021-09-25 03:38] VITALS: BP 148/72
[2021-09-25 05:39] LABS: BASOPHILS % (AUTO) 0.8 % (0.0-5.0); EOSINOPHILS % (AUTO) 2.9 % (0.0-8.0); LYMPHOCYTES % (AUTO) 20.6 % (21.0-51.0); MEAN CORPUSCULAR HEMOGLOBIN 25.7 pg (27.0-33.0); MEAN CORPUSCULAR HGB CONC 32.1 g/dL (32.0-36.0); MEAN CORPUSCULAR VOLUME 80.2 fL (79-99); MONOCYTES % (AUTO) 10.5 % (3.0-13.0); NEUTROPHILS % (AUTO) 64.3 % (40.0-77.0); PLATELET COUNT (AUTO) 252 K/uL (130-400); RED BLOOD CELL COUNT(AUTO) 4.86 MIL/uL (4.50-6.20); RED CELL DISTRIBUTION WIDTH 16.3 % (11.0-15.5); WHITE BLOOD COUNT (AUTO) 6.5 K/uL (4.8-10.8)
[2021-09-25 05:44] LABS: INR 1.43 (0.85-1.15); PROTHROMBIN TIME 15.1 SEC (9.6-11.6)
[2021-09-25 05:46] LABS: PARTIAL THROMBOPLASTIN TIME 56.9 SEC (26.3-35.5)
[2021-09-25 06:05] LABS: ALBUMIN 2.9 g/dL (3.5-5.0); BILIRUBIN,TOTAL 0.3 mg/dL (0.2-1.0); CREATININE 0.8 mg/dL (0.5-1.5); POTASSIUM 3.5 mmol/L (3.5-5.1); TOTAL PROTEIN, SERUM 6.4 g/dL (6.0-8.3)
[2021-09-25] MEDS: INSULIN HUMULIN R 100 UNIT/ML 3ML SQ SCH ×2 (06:10→11:30)
[2021-09-25 08:00] VITALS: BP 154/58
[2021-09-25] MEDS: CLOPIDOGREL 75MG TAB PO SCH (08:14)
[2021-09-25] MEDS: AMIODARONE 200 MG TABLET PO SCH (08:14)
[2021-09-25 08:15] VITALS: BP 154/58
[2021-09-25] MEDS: CARVEDILOL 6.25 MG TABLET PO SCH (08:15)
[2021-09-25] MEDS: POTASSIUM CHLORIDE 10MEQ SR TAB PO SCH (08:15)
[2021-09-25] MEDS: LINAGLIPTIN 5 MG TABLET PO SCH (08:15)
[2021-09-25] MEDS: PANTOPRAZOLE 40 MG TAB DR PO SCH (08:16)
[2021-09-25] MEDS: LISINOPRIL 2.5 MG TABLET PO SCH (08:16)
[2021-09-25] MEDS: FUROSEMIDE 20 MG TABLET PO SCH (08:16)
[2021-09-25] MEDS ORDERED: WARF-57 PO (09:59)
[2021-09-25] MEDS ORDERED: AMIO200T44 PO (09:59)
[2021-09-25] MEDS ORDERED: WARFARIN SODIUM 5 MG TAB PO SCH (10:00)
[2021-09-25] MEDS: ACETAMINOPHEN 325 MG TAB PO PRN (10:53)
== END 2021-09-25 13:08 | disposition home or self-care (01) | DRG 300 ==
LOC: EDH 14:32 → EDHIP 14:33 → 2DH 09-16 14:37 → 3AH 09-17 15:11
PROVIDERS: ADMIT Hospitalist; ATTEND Hospitalist
PROC: B41G1ZZ Fluoroscopy of Left Lower Extremity Arteries using Low Osmolar Contrast (ICD-10-PCS; principal; 2021-09-16)
PROC: B41G1ZZ Fluoroscopy of Left Lower Extremity Arteries using Low Osmolar Contrast (ICD-10-PCS; 2021-09-21)
PROC: B41F1ZZ Fluoroscopy of Right Lower Extremity Arteries using Low Osmolar Contrast (ICD-10-PCS; 2021-09-21)
DX: E11.52 Type 2 diabetes mellitus with diabetic peripheral angiopathy with gangrene (principal); I70.261 Atherosclerosis of native arteries of extremities with gangrene, right leg; I50.42 Chronic combined systolic (congestive) and diastolic (congestive) heart failure; I74.5 Embolism and thrombosis of iliac artery; E11.621 Type 2 diabetes mellitus with foot ulcer; I11.0 Hypertensive heart disease with heart failure; L03.031 Cellulitis of right toe; L97.519 Non-pressure chronic ulcer of other part of right foot with unspecified severity; Z20.822 Contact with and (suspected) exposure to COVID-19; E78.5 Hyperlipidemia, unspecified; I25.10 Atherosclerotic heart disease of native coronary artery without angina pectoris; I25.5 Ischemic cardiomyopathy; Z53.9 Procedure and treatment not carried out, unspecified reason; I48.0 Paroxysmal atrial fibrillation; I70.8 Atherosclerosis of other arteries; Z95.1 Presence of aortocoronary bypass graft; I25.2 Old myocardial infarction; Z79.82 Long term (current) use of aspirin; Z79.01 Long term (current) use of anticoagulants; Z79.899 Other long term (current) drug therapy; Z89.519 Acquired absence of unspecified leg below knee
CPT/HCPCS: 36140; 36246; 36415; 73620; 75635; 75710; 75716; 76775; 80048; 80053; 80061; 80202; 81001; 82040; 82550; 82948; 83036; 84145; 84443; 85025; 85027; 85610; 85651; 85730; 86140; 87040; 87635; 93926; 99156; 99157; C1769; C1887; C1894; G0378; J0692; J1170; J1644; J1815; J1885; J2250; J2720; J3010; J3370; J3490; J7050; Q9967

== ENCOUNTER → 2022-06-15 | Outpatient (CLI) | payer OTHER ==
[~2022-06-15] MED LIST changes: -AMIO200T68 PO; -ASPI-1005 PO; +CLOP-31 PO; -CLOP75TA14 PO; +WARF-57 PO
[2022-06-15 12:19] LABS: BASOPHILS % (AUTO) 0.9 % (0.0-5.0); EOSINOPHILS % (AUTO) 2.2 % (0.0-8.0); HEMATOCRIT 46.1 % (42-54); LYMPHOCYTES % (AUTO) 19.4 % (21.0-51.0); MEAN CORPUSCULAR HGB CONC 31.9 g/dL (32.0-36.0); MEAN CORPUSCULAR VOLUME 84.7 fL (79-99); MONOCYTES % (AUTO) 9.5 % (3.0-13.0); NEUTROPHILS % (AUTO) 67.1 % (40.0-77.0); PLATELET COUNT (AUTO) 265 K/uL (130-400); RED BLOOD CELL COUNT(AUTO) 5.44 MIL/uL (4.50-6.20); RED CELL DISTRIBUTION WIDTH 14.4 % (11.0-15.5); WHITE BLOOD COUNT (AUTO) 6.5 K/uL (4.8-10.8)
[2022-06-15 12:46] LABS: ALBUMIN 3.6 g/dL (3.5-5.0); CREATININE 0.9 mg/dL (0.5-1.5); POTASSIUM 4.4 mmol/L (3.5-5.1); THYROID STIMULATING HORMONE 2.17 uIU/mL (0.36-3.74); TOTAL PROTEIN, SERUM 7.1 g/dL (6.0-8.3)
[2022-06-15 13:54] LABS: HEMOGLOBIN A1C 9.7 % (4.0-6.0)
== END | disposition home or self-care (01) ==
LOC: LAB 06-14 08:18
PROVIDERS: ATTEND Student in an Organized Health Care Education/Training Program
DX: I11.0 Hypertensive heart disease with heart failure (principal); I50.41 Acute combined systolic (congestive) and diastolic (congestive) heart failure; I25.10 Atherosclerotic heart disease of native coronary artery without angina pectoris; I25.5 Ischemic cardiomyopathy; E78.5 Hyperlipidemia, unspecified; I77.9 Disorder of arteries and arterioles, unspecified; I48.0 Paroxysmal atrial fibrillation; Z79.82 Long term (current) use of aspirin; Z79.899 Other long term (current) drug therapy
CPT/HCPCS: 36415; 80053; 80061; 83036; 84443; 85025

== ENCOUNTER 2023-02-22 16:23 | Emergency (ER) | payer OTHER ==
[~2023-02-22] VITALS: Ht 165.1 cm; Wt 88.0 kg
[2023-02-22 16:24] VITALS: BP 157/43; PULSE 81; RESP 17
[2023-02-22] MEDS ORDERED: BACITRACIN 1 EACH PACKET TP ONE ×3 (17:57→18:00)
[2023-02-22] MEDS ORDERED: CEPH500T PO (18:23)
[2023-02-22] MEDS ORDERED: BACI30OI6 TP (18:23)
== END 2023-02-22 18:36 | disposition home or self-care (01) ==
LOC: EDH 16:23
DX: T24.001A Burn of unspecified degree of unspecified site of right lower limb, except ankle and foot, initial encounter (principal); T31.0 Burns involving less than 10% of body surface; I10 Essential (primary) hypertension; E10.9 Type 1 diabetes mellitus without complications; Z79.01 Long term (current) use of anticoagulants; Z79.02 Long term (current) use of antithrombotics/antiplatelets; Z79.84 Long term (current) use of oral hypoglycemic drugs; Z79.899 Other long term (current) drug therapy; Z86.73 Personal history of transient ischemic attack (TIA), and cerebral infarction without residual deficits; Z95.1 Presence of aortocoronary bypass graft; W86.8XXA Exposure to other electric current, initial encounter; Y93.89 Activity, other specified; Y92.89 Other specified places as the place of occurrence of the external cause; Y99.8 Other external cause status

== ENCOUNTER 2023-02-25 22:42 | Inpatient (IN) | payer OTHER ==
[~2023-02-25] VITALS: Ht 165.1 cm; Wt 90.7 kg
[~2023-02-25 22:42] MED LIST changes: +BACI30OI6 TP; +CEPH500T PO
[2023-02-25] MEDS ORDERED: ZOSYN 3.375GM+NS 50ML 50 ML IVPB STA (22:48)
[2023-02-25] MEDS ORDERED: VANCOMYCIN KIT 1 GM/250 ML IV.KIT IV ONE (23:00)
[2023-02-25] MEDS ORDERED: 0.9%NACL 1000ML 3,000 ML IV ONE (23:00)
[2023-02-25] MEDS ORDERED: VANCOMYCIN 1G/250ML KIT 250 ML IV ONE (23:00)
[2023-02-25] MEDS ORDERED: ACETAMINOPHEN 500 MG TABLET PO ONE (23:00)
[2023-02-25] MEDS ORDERED: IBUPROFEN 800 MG TAB PO ONE (23:00)
[2023-02-25] MEDS ORDERED: DIPH,PERTUSS(ACELL),TET VAC/PF 0.5 ML VIAL IM ONE (23:00)
[2023-02-25] MEDS ORDERED: IBUPROFEN 400 MG TABLET ONE (23:04)
[2023-02-25 23:11] LABS: BASOPHILS % (AUTO) 0.4 % (0.0-5.0); HEMATOCRIT 40.6 % (42-54); LYMPHOCYTES % (AUTO) 4.2 % (21.0-51.0); MEAN CORPUSCULAR HEMOGLOBIN 27.5 pg (27.0-33.0); MEAN CORPUSCULAR VOLUME 83.4 fL (79-99); MONOCYTES % (AUTO) 5.6 % (3.0-13.0); NEUTROPHILS % (AUTO) 88.5 % (40.0-77.0); PLATELET COUNT (AUTO) 192 K/uL (130-400); RED BLOOD CELL COUNT(AUTO) 4.87 MIL/uL (4.50-6.20); RED CELL DISTRIBUTION WIDTH 14.6 % (11.0-15.5); WHITE BLOOD COUNT (AUTO) 6.8 K/uL (4.8-10.8)
[2023-02-25 23:24] LABS: CREATININE 1.3 mg/dL (0.5-1.5)
[2023-02-25 23:28] LABS: ALBUMIN 2.6 g/dL (3.5-5.0); TOTAL PROTEIN, SERUM 6.8 g/dL (6.0-8.3)
[2023-02-25] MEDS ORDERED: TETANUS/DIPHTHERIA TOXOID [ADULT] 0.5 ML VIAL IM ONE (23:30)
[2023-02-25 23:33] LABS: INR 1.49 (0.85-1.15); PROTHROMBIN TIME 16.8 SEC (9.6-11.6)
[2023-02-25 23:39] LABS: B-TYPE NATRIURETIC PEPTIDE 574 pg/mL (0-100)
[2023-02-26] MEDS: LACTATED RINGERS 1000ML 1,000 ML IV SCH ×2 (01:50→14:30)
[2023-02-26] MEDS ORDERED: ALBUTEROL 0.083% 2.5 MG/3 ML INH IH PRN (02:00)
[2023-02-26] MEDS ORDERED: MORPHINE 2 MG SYG IVP PRN (02:00)
[2023-02-26] MEDS ORDERED: HYDROCODONE/ACETAMINOPHEN 5/325 MG TAB PO PRN (02:00)
[2023-02-26] MEDS ORDERED: ZOSYN 3.375GM +NS 50ML IVPB SCH (02:00)
[2023-02-26] MEDS ORDERED: VANCOMYCIN PROTOCOL PER PHARMACY IV SCH (02:00)
[2023-02-26] MEDS ORDERED: 0.9%NACL 50ML IV SCH (02:00)
[2023-02-26] MEDS: CLINDAMYCIN IVPB 600MG/50ML 50 ML IV SCH ×3 (02:00→18:09)
[2023-02-26 02:22] LABS: HEMOGLOBIN A1C 8.5 % (4.0-6.0)
[2023-02-26 02:29] LABS: CHOLESTEROL 129 mg/dL (<200); HDL CHOLESTEROL 30 mg/dL (29-71); LDL DIRECT 65 mg/dL (0-99); TRIGLYCERIDES 161 mg/dL (30-200)
[2023-02-26 04:00] VITALS: BP 114/64; PULSE 55; RESP 18
[2023-02-26] MEDS: INSULIN HUMULIN R 100 UNIT/ML 3ML SQ SCH ×3 (05:58→18:00)
[2023-02-26] MEDS: ZOSYN 3.375GM +NS 50ML IVPB SCH ×3 (06:11→22:40)
[2023-02-26] MEDS ORDERED: COMPOUND IV REFRIGERATED 1 EACH IVSOLN MISC PRN (06:30)
[2023-02-26 08:00] VITALS: O2SAT 98
[2023-02-26 08:44] VITALS: BP 132/47; PULSE 62; RESP 18
[2023-02-26] MEDS: DOCUSATE SODIUM 100 MG CAP PO SCH ×2 (09:06→20:38)
[2023-02-26] MEDS: PANTOPRAZOLE 40 MG TAB DR PO SCH (09:06)
[2023-02-26] MEDS: VANCOMYCIN 2GM/500 ML BAG 500 ML IV SCH (09:07)
[2023-02-26] MEDS: ENOXAPARIN SODIUM 40 MG/0.4 ML SYRINGE SQ SCH (09:07)
[2023-02-26] MEDS: ACETAMINOPHEN 325 MG TAB PO PRN ×2 (11:21→18:15)
[2023-02-26 11:49] VITALS: BP 123/76; PULSE 85; RESP 18
[2023-02-26 16:00] VITALS: BP 144/59; PULSE 69; RESP 18
[2023-02-26 18:18] LABS: BASOPHILS % (AUTO) 0.8 % (0.0-5.0); EOSINOPHILS % (AUTO) 0.5 % (0.0-8.0); HEMATOCRIT 34.7 % (42-54); LYMPHOCYTES % (AUTO) 5.6 % (21.0-51.0); MEAN CORPUSCULAR HGB CONC 32.6 g/dL (32.0-36.0); MEAN CORPUSCULAR VOLUME 86.1 fL (79-99); MONOCYTES % (AUTO) 9.9 % (3.0-13.0); NEUTROPHILS % (AUTO) 82.7 % (40.0-77.0); PLATELET COUNT (AUTO) 176 K/uL (130-400); RED BLOOD CELL COUNT(AUTO) 4.03 MIL/uL (4.50-6.20); RED CELL DISTRIBUTION WIDTH 14.9 % (11.0-15.5); WHITE BLOOD COUNT (AUTO) 6.2 K/uL (4.8-10.8)
[2023-02-26] MEDS ORDERED: HEPARIN 5,000 UNIT VIAL SQ PRN (18:30)
[2023-02-26] MEDS: HEPARIN 25,000 UNITS/250ML D5W 250 ML IV SCH (18:44)
[2023-02-26 20:00] VITALS: BP 161/51; PULSE 66; RESP 18; O2SAT 98
[2023-02-26] MEDS ORDERED: ATORVASTATIN 40 MG TABLET PO SCH (21:00)
[2023-02-27] VITALS (7 sets, daily range): BP systolic 137–168; BP diastolic 55–77; PULSE 70–80; RESP 18–20; TEMP 99.8
[2023-02-27] MEDS: HEPARIN 25,000 UNITS/250ML D5W 250 ML IV SCH ×5 (00:30→21:14)
[2023-02-27] MEDS: ACETAMINOPHEN 325 MG TAB PO PRN ×2 (00:51→08:39)
[2023-02-27] MEDS: CLINDAMYCIN IVPB 600MG/50ML 50 ML IV SCH ×3 (01:00→17:40)
[2023-02-27 05:54] LABS: BASOPHILS % (AUTO) 0.4 % (0.0-5.0); HEMATOCRIT 35.9 % (42-54); LYMPHOCYTES % (AUTO) 10.4 % (21.0-51.0); MEAN CORPUSCULAR HEMOGLOBIN 27.2 pg (27.0-33.0); MEAN CORPUSCULAR HGB CONC 32.6 g/dL (32.0-36.0); MEAN CORPUSCULAR VOLUME 83.5 fL (79-99); MONOCYTES % (AUTO) 11.6 % (3.0-13.0); NEUTROPHILS % (AUTO) 75.7 % (40.0-77.0); PLATELET COUNT (AUTO) 177 K/uL (130-400); RED CELL DISTRIBUTION WIDTH 14.9 % (11.0-15.5); WHITE BLOOD COUNT (AUTO) 6.8 K/uL (4.8-10.8)
[2023-02-27] MEDS: INSULIN HUMULIN R 100 UNIT/ML 3ML SQ SCH ×4 (06:00→17:40)
[2023-02-27 06:21] LABS: ALBUMIN 1.8 g/dL (3.5-5.0); CREATININE 0.8 mg/dL (0.5-1.5); MAGNESIUM 1.5 mg/dL (1.80-2.40); PHOSPHORUS 2.3 mg/dL (2.5-4.9); POTASSIUM 3.6 mmol/L (3.5-5.1); THYROID STIMULATING HORMONE 0.64 uIU/mL (0.36-3.74); TOTAL PROTEIN, SERUM 5.1 g/dL (6.0-8.3)
[2023-02-27 06:28] LABS: INR 3.74 (0.85-1.15); PROTHROMBIN TIME 39.8 SEC (9.6-11.6)
[2023-02-27 06:31] LABS: PARTIAL THROMBOPLASTIN TIME 69.8 SEC (26.3-35.5)
[2023-02-27] MEDS: LACTATED RINGERS 1000ML 1,000 ML IV SCH ×2 (06:40→13:43)
[2023-02-27] MEDS ORDERED: LACTATED RINGERS 1000ML IV SCH (07:00)
[2023-02-27] MEDS: VANCOMYCIN 2GM/500 ML BAG 500 ML IV SCH (08:37)
[2023-02-27] MEDS: ENOXAPARIN SODIUM 40 MG/0.4 ML SYRINGE SQ SCH (08:38)
[2023-02-27] MEDS: PANTOPRAZOLE 40 MG TAB DR PO SCH (08:39)
[2023-02-27] MEDS: DOCUSATE SODIUM 100 MG CAP PO SCH (08:39)
[2023-02-27] MEDS ORDERED: ASPIRIN 81 MG EC TAB PO SCH (09:00)
[2023-02-27] MEDS ORDERED: CLOPIDOGREL 75MG TAB PO SCH (09:00)
[2023-02-27] MEDS ORDERED: KCL 20 MEQ ERTAB PO ONE (09:30)
[2023-02-27] MEDS ORDERED: MAGNESIUM 2GM PREMIX 50ML 50 ML IV SCH (09:30)
[2023-02-27] MEDS ORDERED: ZOSYN 3.375GM +NS 50ML IVPB SCH (14:00)
== END 2023-02-27 21:17 | disposition short-term general hospital (02) | DRG 872 ==
LOC: EDH 22:42 → EDHIP 02-26 01:31 → OBSVTOIN 02-26 01:31 → 4CH 02-26 04:09
PROVIDERS: ADMIT Internal Medicine Pulmonary Disease; ATTEND Internal Medicine Pulmonary Disease
DX: A41.50 Gram-negative sepsis, unspecified (principal); I50.22 Chronic systolic (congestive) heart failure; L97.919 Non-pressure chronic ulcer of unspecified part of right lower leg with unspecified severity; E11.42 Type 2 diabetes mellitus with diabetic polyneuropathy; E66.09 Other obesity due to excess calories; Z20.822 Contact with and (suspected) exposure to COVID-19; E78.5 Hyperlipidemia, unspecified; I11.0 Hypertensive heart disease with heart failure; I25.10 Atherosclerotic heart disease of native coronary artery without angina pectoris; I25.5 Ischemic cardiomyopathy; R65.20 Severe sepsis without septic shock; Z79.4 Long term (current) use of insulin; Z95.1 Presence of aortocoronary bypass graft; Z82.49 Family history of ischemic heart disease and other diseases of the circulatory system; Z83.3 Family history of diabetes mellitus; Z86.73 Personal history of transient ischemic attack (TIA), and cerebral infarction without residual deficits; Z87.891 Personal history of nicotine dependence; Z68.33 Body mass index [BMI] 33.0-33.9, adult
CPT/HCPCS: 36415; 71045; 73590; 73630; 80053; 80061; 82140; 82306; 82550; 82948; 83036; 83605; 83615; 83735; 83880; 84100; 84145; 84443; 84484; 85025; 85610; 85730; 87040; 87070; 87076; 87077; 87186; 87635; 87804; 93005; 93925; 93970; 94664; 99291; A6248; C9803; G0378; J1644; J1650; J2543; J3370; J3490

== ENCOUNTER → 2023-08-28 | Outpatient (CLI) | payer OTHER | END | disposition home or self-care (01) | LOC: RAH 10:38 | PROVIDERS: ATTEND Physician Assistant | DX: I70.201 Unspecified atherosclerosis of native arteries of extremities, right leg (principal); Z89.511 Acquired absence of right leg below knee | CPT/HCPCS: 93926 ==

== ENCOUNTER → 2023-09-08 | Outpatient (CLI) | payer OTHER ==
[~2023-09-08] MED LIST changes: +EMPA10TA PO; +LISI5TAB21 PO; +POTA-200 PO; +WARF4TAB8 PO
== END | disposition home or self-care (01) ==
LOC: SHCH 08:43
PROVIDERS: ATTEND Student in an Organized Health Care Education/Training Program
DX: I50.9 Heart failure, unspecified (principal); I51.89 Other ill-defined heart diseases; E11.9 Type 2 diabetes mellitus without complications; E78.5 Hyperlipidemia, unspecified; Z95.1 Presence of aortocoronary bypass graft
CPT/HCPCS: 93306

== ENCOUNTER 2023-12-21 09:46 | Emergency (ER) | payer OTHER ==
[~2023-12-21] VITALS: Ht 165.1 cm; Wt 82.6 kg
[~2023-12-21 09:46] MED LIST changes: -AMIO200T44 PO; +ASPI-1197 PO; -BACI30OI6 TP; -CEPH500T PO; -CLOP-31 PO; -LISI2.5T13 PO; -PANT40TA55 PO; -TRIA15CR45 TP
[2023-12-21 10:15] VITALS: BP 104/54; PULSE 77; RESP 18; O2SAT 98
[2023-12-21 10:30] VITALS: O2SAT 98
[2023-12-21] MEDS ORDERED: KCL 20 MEQ ERTAB PO PRN (11:00)
[2023-12-21] MEDS ORDERED: CLONIDINE HCL 0.1 MG TABLET PO PRN (11:00)
[2023-12-21] MEDS ORDERED: DOCUSATE SODIUM 100 MG CAP PO PRN (11:00)
[2023-12-21] MEDS ORDERED: POTASSIUM CHLORIDE 10% ELIXIR 20 MEQ/15 ML UDCUP PO PRN (11:00)
[2023-12-21] MEDS ORDERED: ALBUTEROL 0.083% 2.5 MG/3 ML INH IH PRN (11:00)
[2023-12-21] MEDS ORDERED: HYDRALAZINE 20MG/ML VIAL IV PRN (11:00)
[2023-12-21] MEDS ORDERED: POTASSIUM CHLORIDE 20MEQ/100ML 100 ML IV PRN (11:00)
[2023-12-21] MEDS ORDERED: LABETALOL 20MG SYG IV PRN (11:00)
[2023-12-21] MEDS ORDERED: ONDANSETRON 4MG INJ IVP PRN (11:00)
[2023-12-21] MEDS ORDERED: LACTULOSE 20 GM/30 ML UDCUP PO PRN (11:00)
[2023-12-21] MEDS ORDERED: VANCOMYCIN PROTOCOL PER PHARMACY IV SCH (11:00)
[2023-12-21 11:21] LABS: HEMATOCRIT 48.6 % (42-54); MEAN CORPUSCULAR HGB CONC 33.3 g/dL (32.0-36.0); MEAN CORPUSCULAR VOLUME 80.9 fL (79-99); RED BLOOD CELL COUNT(AUTO) 6.01 MIL/uL (4.50-6.20); RED CELL DISTRIBUTION WIDTH 15.8 % (11.0-15.5)
[2023-12-21] MEDS: INSULIN HUMULIN R 100 UNIT/ML 3ML SQ SCH (11:26)
[2023-12-21] MEDS: 0.9%NACL 1000ML 1,000 ML IV SCH (11:30)
[2023-12-21] MEDS: VANCOMYCIN 2GM/500 ML BAG 500 ML IV ONE (11:30)
[2023-12-21 11:34] LABS: CREATININE 0.9 mg/dL (0.5-1.3); POTASSIUM 4.4 mmol/L (3.5-5.1)
[2023-12-21] MEDS ORDERED: CEFEPIME HCL 1 GM VIAL IV SCH (13:00)
[2023-12-21] MEDS: CEFEPIME HCL 1 GM VIAL IV SCH (15:37)
[2023-12-21 16:00] VITALS: BP 144/49; PULSE 59; RESP 18
[2023-12-21] MEDS: ACETAMINOPHEN 650 MG SUPPOSITORY RC PRN (16:15)
[2023-12-21 20:00] VITALS: BP 131/41; PULSE 62; RESP 20; O2SAT 93
[2023-12-21] MEDS: VANCOMYCIN 1.25 GM/250 ML BAG 250 ML IV SCH (23:53)
[2023-12-21] MEDS: ACETAMINOPHEN 325 MG TAB PO PRN (23:57)
[2023-12-22] VITALS (7 sets, daily range): BP systolic 124–156; BP diastolic 34–61; PULSE 59–71; RESP 17–20; O2SAT 96–98
[2023-12-22 04:13] LABS: BASOPHILS # (AUTO) 0.05 K/uL (0.00-0.20); BASOPHILS % (AUTO) 0.8 % (0.0-5.0); EOSINOPHILS # (AUTO) 0.23 K/uL (0.00-0.70); EOSINOPHILS % (AUTO) 3.6 % (0.0-8.0); HEMATOCRIT 41.6 % (42-54); IMMATURE GRANULOCYTE ABSOLUTE 0.04 K/uL (0-1); LYMPHOCYTES % (AUTO) 15.8 % (21.0-51.0); MEAN CORPUSCULAR HEMOGLOBIN 26.9 pg (27.0-33.0); MEAN CORPUSCULAR HGB CONC 32.9 g/dL (32.0-36.0); MEAN CORPUSCULAR VOLUME 81.6 fL (79-99); MONOCYTES # (AUTO) 0.6 K/uL (0.1-1.0); MONOCYTES % (AUTO) 9.5 % (3.0-13.0); NEUTROPHILS # (AUTO) 4.5 K/uL (1.8-7.7); NEUTROPHILS % (AUTO) 69.7 % (40.0-77.0); PLATELET COUNT (AUTO) 216 K/uL (130-400); RED CELL DISTRIBUTION WIDTH 15.3 % (11.0-15.5); WHITE BLOOD COUNT (AUTO) 6.4 K/uL (4.8-10.8)
[2023-12-22 04:27] LABS: CREATININE 0.7 mg/dL (0.5-1.3); MAGNESIUM 1.9 mg/dL (1.80-2.40); PHOSPHORUS 3.9 mg/dL (2.5-4.9); POTASSIUM 4.1 mmol/L (3.5-5.1)
[2023-12-22] MEDS: PANTOPRAZOLE 40 MG TAB DR PO SCH (08:50)
[2023-12-22] MEDS: ENOXAPARIN SODIUM 40 MG/0.4 ML SYRINGE SQ SCH (08:50)
[2023-12-22] MEDS: MAGNESIUM 2GM PREMIX 50ML 50 ML IV PRN (08:53)
[2023-12-22] MEDS ORDERED: MUPIROCIN OINTMENT 22 GM TUBE TP SCH (21:00)
== END 2023-12-22 16:18 | disposition left against medical advice (07) ==
LOC: EDH 09:46 → 3AH 09:47 → EDH 10:26
PROVIDERS: ADMIT Internal Medicine Pulmonary Disease; ATTEND Internal Medicine Pulmonary Disease
DX: E11.621 Type 2 diabetes mellitus with foot ulcer (principal); L97.519 Non-pressure chronic ulcer of other part of right foot with unspecified severity; I10 Essential (primary) hypertension; E11.65 Type 2 diabetes mellitus with hyperglycemia; I25.810 Atherosclerosis of coronary artery bypass graft(s) without angina pectoris; E78.5 Hyperlipidemia, unspecified; Z86.73 Personal history of transient ischemic attack (TIA), and cerebral infarction without residual deficits; Z89.511 Acquired absence of right leg below knee; Z95.1 Presence of aortocoronary bypass graft
CPT/HCPCS: 96376 ×2; 96365; 96366 ×2; 96375 ×2; 80048 ×2; 85027; 85651; 82948 ×6; 86140; 36415 ×2; 84145; 96372; 80202; 83735; 84100; 85025; 71046; 73562; G0378 ×31; G0379; J0692 ×3; J3370; J3475; J1650; 3370

== ENCOUNTER → 2024-10-21 | Outpatient (CLI) | payer OTHER ==
[2024-10-21 12:09] LABS: ALBUMIN 3.9 g/dL (3.5-5.0); BILIRUBIN,TOTAL 0.3 mg/dL (0.2-1.0); CREATININE 0.9 mg/dL (0.5-1.3); POTASSIUM 4.1 mmol/L (3.5-5.1); TOTAL PROTEIN, SERUM 7.5 g/dL (6.0-8.3)
== END | disposition home or self-care (01) ==
LOC: LAB 08:12
PROVIDERS: ATTEND Student in an Organized Health Care Education/Training Program
DX: I10 Essential (primary) hypertension (principal); I47.29 Other ventricular tachycardia
CPT/HCPCS: 36415; 80053